=== PATIENT | female | born 1955 | race Hispanic/Latino ===

== ENCOUNTER 2018-03-17 12:59 | Observation (INO) | payer OTHER ==
--- OUTSIDE RECORDS SUMMARY | 2018-03-17 13:02 | XMS REPORT | Clinical Summary ---
:1955 Author Organization [facility] Address [address] [place] [address] Care Team Providers Name Role Phone Asked, No Pcp Primary Care Provider Unavailable Allergies No Known Allergies Medications Medication Sig Dispensed Refills Start End Date Status Date venlafaxine 225 MG 0 Active tablet extended release 7 24hr 24 hr tablet gabapentin (NEURONTIN) 0 Active 300 mg capsule 7 morPHINE (MSIR) 15 MG TK 1 T PO BID 0 Active tablet 7 QUEtiapine (SEROquel) 0 Active 100 MG tablet 7 sertraline (ZOLOFT) 100 0 Active MG tablet 7 hydroxychloroquine Take by mouth 0 Active (PLAQUENIL) 200 mg daily. tablet amitriptyline (ELAVIL) Take 10 mg by 0 Active 10 MG tablet mouth nightly. allopurinol (ZYLOPRIM) Take 300 mg 0 Active 300 MG tablet by mouth daily. simvastatin (ZOCOR) 40 Take 40 mg by 0 Active MG tablet mouth nightly. alendronate (FOSAMAX) TK 1 T PO 0 11/02/19 Discontinued 70 MG tablet ONCE A WEEK 7 18 amitriptyline (ELAVIL) 0 10/09/19 Discontinued 10 MG tablet 7 18 amoxicillin (AMOXIL) TK 1 T PO QID 0 08/31/19 Discontinued 500 MG capsule TAT. TK WF 7 18 AND DRK PLENTY OF WATER atenolol (TENORMIN) 25 0 11/02/19 Discontinued MG tablet 7 18 cyclobenzaprine 0 11/02/19 Discontinued (FLEXERIL) 5 mg tablet 7 18 enalapril (VASOTEC) 5 TK 1 T PO D 1 10/09/19 Discontinued MG tablet 7 18 ferrous sulfate 325 (65 TK 1 T PO BID 2 05/31/19 Discontinued FE) MG tablet 7 18 morPHINE (MS CONTIN) 15 0 04/24/19 Discontinued MG 12 hr tablet 7 18 predniSONE (DELTASONE) Take 5 mg by 0 05/31/19 Discontinued 5 mg tablet mouth daily. 18 gabapentin (NEURONTIN) Take 1 15 capsule 0 04/30/19 300 mg capsule capsule (300 8 18 mg total) by mouth every 8 (eight) hours for 5 days. acetaminophen (TYLENOL Take 2 15 tablet 0 04/30/19 EXTRA STRENGTH) 500 MG tablets 8 18 tablet (1,000 mg total) by mouth every 8 (eight) hours as needed for mild pain for up to 5 days. ibuprofen (ADVIL) 200 Take 2 15 tablet 0 05/25/19 MG tablet tablets (400 8 18 mg total) by mouth every 8 (eight) hours as needed for mild pain for up to 30 days. traMADol (ULTRAM) 50 mg Take 1 tablet 20 tablet 0 10/04/19 tablet (50 mg total) 8 18 by mouth every 6 (six) hours as needed for moderate pain or severe pain for up to 7 days. acetaminophen (TYLENOL Take 1 tablet 21 tablet 0 10/04/19 EXTRA STRENGTH) 500 MG (500 mg 8 18 tablet total) by mouth every 8 (eight) hours for 7 days. cyanocobalamin 1,000 Inject into 0 11/02/19 Discontinued mcg/mL injection the shoulder, 1 18 thigh, or buttocks. Active Problems Problem Noted Date Lung nodule 04/09/2017 Encounters Date Type Specialty Care Team Description 11/06/2017 Telephone CardiothZiggy Riggs MA 11/01/2017 Office Visit Cardiothoracic Amado Caldera Surgery follow-up Surgery MD Aba examination (Primary Dx) 10/12/2017 Telephone CardiothZiggy Riggs MA 10/12/2017 Telephone CardiothZiggy Riggs MA 10/12/2017 Telephone Cardiothoracic Breana, Surgery Rebecca, MA 10/11/2017 Telephone Cardiothoracic Breana, Surgery Rebecca, MA 10/10/2017 Orders Only Cardiothoracic Breana, Lung nodule (Primary Surgery Rebecca, MA Dx) 10/08/2017 Office Visit Cardiothoracic Jamal, Visit for wound Surgery Sheri Pfeiffer NP check (Primary Dx) 09/26/2017 Patient Outreach Garrett Mary Atwood Dolores 09/25/2017 Surgery Cardiothoracic Amado Caldera ROBOTIC ASSISTED Surgery MD Aba THORACOSCOPIC THERAPEUTIC LEFT LUNG WEDGE RESECTION, 09/25/2017 Anesthesia Event Cardiothoracic Jacqueline Snow Surgery 09/25/2017 - Hospital Encounter Cardiovascular Amado Caldera Lung nodule 09/26/2017 MD Aba 09/24/2017 Telephone Cardiothoracic Jamal, Ziggy Pfeiffer, DARIA 08/31/2017 Telephone Cardiothoracic Breana, Surgery Rebecca, MA 08/30/2017 Lab Lab Amado Caldera Lung nodule; MD Aba Pre-op testing; SOB (shortness of breath) 08/30/2017 Hospital Encounter Pulmonology Amado Caldera Lung joseph Troncoso MD 08/30/2017 Hospital Encounter Radiology Amado Caldera MD 08/30/2017 Office Visit Cardiothoracic Amado Caldera Lung nodule (Primary Dx ); Surgery MD Aba Pre-op testing; SOB (shortness of breath) 08/30/2017 Orders Only Cardiothoracic Provider, Ziggy Webb MD 08/22/2017 Orders Only Cardiothoracic Provider, Ziggy Webb MD 05/31/2017 Office Visit Cardiothoracic Amado Caldera Lung nodule (Primary Surgery MD Aba Dx) 05/02/2017 Telephone CardiothAmado Baltazar MD 04/24/2017 Anesthesia Event Cardiothoracic Thony Quintero Surgery MD 04/24/2017 Surgery Cardiothoracic Amado Caldera VIDEO ASSISTED Surgery MD Aba THOROSCOPIC RIGHT LOWER LOBE W/ WEDGE RESECTION 04/24/2017 - Hospital Encounter Cardiovascular WernerAmado Lung nodule 04/25/2017 MD Aba 04/23/2017 Telephone Cardiothoracic Jamal Surgery Sheri Pfeiffer, [employer]ACH[employer] RIGGER 04/05/2017 Office Visit Cardiothoracic Amado Caldera Lung nodule (Primary Surgery MD Aba Dx) 04/03/2017 Telephone Cardiothoracic Amado Caldera Surgery MD Aba 03/28/2017 Anesthesia Event Cardiothoracic Mike, Surgery MD Robert 03/28/2017 Surgery Cardiothoracic Amado Caldera FLEXIBLE Surgery MD Aba BRONCHOSCOPY, ENDOBRONCHIAL ULTRASOUND W/ BIOPSY 03/28/2017 Hospital Encounter Cardiothoracic Amado Caldera Surgery MD Aba 03/27/2017 Telephone Cardiothoracic Jamal, Surgery Sheri Pfeiffer NP 03/19/2017 Hospital Encounter Pulmonology Amado Caldera SOB (shortness of Y.MD Bhanu breath) 03/19/2017 Lab Lab Amado Caldera LAD (lymphadenopathy), mediastinal; MD Aba Lung nodules; Pre-op testing 03/19/2017 Hospital Encounter Pulmonology Amado Caldera MD after 03/16/2017 Immunizations Name Dates Previously Given Next Due FLUCELVAX QUAD PF (0.5mL syringe) 04/25/2017 Social History Tobacco Use Types Packs/Day Years Used Date Never Smoker Smokeless Tobacco: Never Used Alcohol Use Drinks/Week oz/Week Comments No Sex Assigned at Date Recorded Not on file Job Start Date Occupation Industry Not on file Not on file Not on file Travel History Travel Start Travel End No recent travel history available. Last Filed Vital Signs Vital Sign Reading Time Taken Blood Pressure 147/81 11/01/2017 10:35 AM CDT Pulse 96 11/01/2017 10:35 AM CDT Temperature 36.5 C (97.7 F) 11/01/2017 10:35 AM CDT Respiratory Rate 16 11/01/2017 10:35 AM CDT Oxygen Saturation 96% 11/01/2017 10:35 AM CDT Inhaled Oxygen Concentration - - Weight 93 kg (205 lb) 11/01/2017 10:35 AM CDT Height 167.6 cm (5' 6") 11/01/2017 10:35 AM CDT Body Mass Index 33.09 11/01/2017 10:35 AM CDT Plan of Treatment Health Maintenance Due Date Last Done Comments CERVICAL CANCER SCREENING 1974 BREAST CANCER SCREENING 07/20/2003 COLON CANCER SCREENING 07/20/2003 SHINGRIX VACCINE (1 of 2) 07/20/2003 ZOSTER VACCINE 2013 INFLUENZA VACCINE 11/14/2017 04/25/2017 Procedures Procedure Name Priority Date/Time Associated Comments Diagnosis XR CHEST 1 VW STAT 09/26/2017 2:09 Results for this PORTABLE PM CDT procedure are in the results section. POC GLUCOSE Routine 09/26/2017 11:44 Results for this AM CDT procedure are in the results section. ZZESTIMATED GFR Routine 09/26/2017 8:30 Results for this AM CDT procedure are in the results section. PHOSPHORUS LEVEL Routine 09/26/2017 8:30 Results for this AM CDT procedure are in the results section. MAGNESIUM LEVEL Routine 09/26/2017 8:30 Results for this AM CDT procedure are in the results section. BASIC METABOLIC PANEL Routine 09/26/2017 8:30 Results for this AM CDT procedure are in the results section. HC COMPLETE BLD COUNT Routine 09/26/2017 8:11 Results for this W/AUTO DIFF AM CDT procedure are in the results section. POC GLUCOSE Routine 09/26/2017 7:52 Results for this AM CDT procedure are in the results section. XR CHEST 1 VW STAT 09/26/2017 6:30 Results for this PORTABLE AM CDT procedure are in the results section. ZZESTIMATED GFR Routine 09/26/2017 5:10 Results for this AM CDT procedure are in the results section. CBC WITH PLATELET AND Routine 09/26/2017 5:10 Results for this DIFFERENTIAL AM CDT procedure are in the results section. BASIC METABOLIC PANEL Routine 09/26/2017 5:10 Results for this AM CDT procedure are in the results section. POC GLUCOSE Routine 09/25/2017 8:50 Results for this PM CDT procedure are in the results section. POC GLUCOSE Routine 09/25/2017 5:09 Results for this PM CDT procedure are in the results section. SURGICAL PATHOLOGY Routine 09/25/2017 4:04 Results for this REQUEST PM CDT procedure are in the results section. XR CHEST 1 VW STAT 09/25/2017 11:15 Results for this PORTABLE AM CDT procedure are in the results section. FLOW CYTOMETRY Timed 09/25/2017 9:50 Lung nodule Results for this EVALUATION AM CDT procedure are in the results section. FUNGUS SMEAR Timed 09/25/2017 9:50 Results for this AM CDT procedure are in the results section. FUNGUS CULTURE Timed 09/25/2017 9:50 Results for this AM CDT procedure are in the results section. ANAEROBIC CULTURE Timed 09/25/2017 9:50 Results for this AM CDT procedure are in the results section. GRAM STAIN Timed 09/25/2017 9:50 Results for this AM CDT procedure are in the results section. AFB STAIN Timed 09/25/2017 9:50 Results for this AM CDT procedure are in the results section. AFB CULTURE Timed 09/25/2017 9:50 Lung nodule Results for this AM CDT procedure are in the results section. TISSUE CULTURE Timed 09/25/2017 9:50 Lung nodule Results for this AM CDT procedure are in the results section. ARTERIAL BLOOD GAS, STAT 09/25/2017 9:31 Results for this CORRECTED AM CDT procedure are in the results section. POTASSIUM, SYRINGE STAT 09/25/2017 9:31 Results for this AM CDT procedure are in the results section. SODIUM LEVEL, SYRINGE STAT 09/25/2017 9:31 Results for this AM CDT procedure are in the results section. IONIZED CALCIUM, STAT 09/25/2017 9:31 Results for this ARTERIAL AM CDT procedure are in the results section. HEMOGLOBIN, SYRINGE STAT 09/25/2017 9:31 Results for this AM CDT procedure are in the results section. GLUCOSE LEVEL, STAT 09/25/2017 9:31 Results for this SYRINGE AM CDT procedure are in the results section. ARTERIAL LINE Routine 09/25/2017 8:56 AM CDT Procedure Note - Fredrick Viramontes CRNA - 09/25/2017 8:56 AM CDT Arterial line Performed by: FREDRICK VIRAMONTES Authorized by: REMY BRYANT JR. Patient Location: Pre-op Start Time: 09/25/2017 7:00 AM End Time: 09/25/2017 7:05 AM Staff: Resident/MAGDALENA/AA: FREDRICK VIRAMONTES Performed by: Resident/OTORHINOLARYNGOLOGIST/AA Pre-procedure: patient identified, IV checked, site and side verified, risks and benefits discussed, procedure verified, surgical consent complete, patient position confirmed, monitors and equipment checked and pre-op evaluation complete MSBT: antiseptic used, all elements of maximal sterile barrier technique followed, hand hygiene performed, cap/gown used by other personnel and solutions labeled TIme Out Performed: 09/25/2017 7:00 AM Indications: Indications: multiple ABGs, respiratory failure and hemodynamic monitoring Anesthesia: Anesthesia: Local infiltration Procedure Details: Arterial Line placement: Placed pre-induction Line placement site: Radial Line placement side: Left Arterial line gauge: 20 G Number of attempts: 1 Ultrasound guidance used: No Post-procedure: Post-procedure: Sterile dressing applied Post procedure circulation, sensation, movement: Unchanged Patient tolerance: Patient tolerated the procedure well with no immediate complications DE AN ELECTIVE ENDOTRACHEAL AIRWAY Routine 09/25/2017 8:54 AM CDT Procedure Note - Fredrick Viramontes CRNA - 09/25/2017 8:54 AM CDT Airway Date/Time: 09/25/2017 8:12 AM Performed by: FREDRICK VIRAMONTES Authorized by: REMY BRYANT JR. Location: OR Urgency: Elective Anesthesiologist: REMY BRYANT JR. Resident/OTORHINOLARYNGOLOGIST/AA: FREDRICK VIRAMONTES Performed by: resident/OTORHINOLARYNGOLOGIST/AA Preoxygenated with 100% O2: Yes C-spine Precautions Maintained Throughout: Yes Mask Ventilation: Easy mask Final Airway Type: Endotracheal airway Final Endotracheal Airway: ETT - double lumen left Cuffed: Yes Technique Used: Direct laryngoscopy Devices/Methods Used in Placement: Intubating stylet Insertion Site: Oral Blade Type: Raul Laryngoscope Blade/Videolaryngoscope Blade Size: 3 ETT Double Lumen (fr): 37 Cuff at minimum occlusion pressure: Yes Measured from: Lips ETT to Lips (cm): 28 Placement Verified by: CO2 detection, direct visualization and equal breath sounds Laryngoscopic view: Grade I - full view of glottis Rapid Sequence Induction (RSI): No Modified RSI: No Number of Attempts at Approach: 1 Atraumatic intubation, teeth and lips intact, ETT secured via tape and connected to the OR vent. Patient tolerated intubation well. ARTERIAL BLOOD GAS, STAT 09/25/2017 8:54 AM Results for this CORRECTED CDT procedure are in the results section. POTASSIUM, SYRINGE STAT 09/25/2017 8:54 AM Results for this CDT procedure are in the results section. SODIUM LEVEL, SYRINGE STAT 09/25/2017 8:54 AM Results for this CDT procedure are in the results section. HEMOGLOBIN, SYRINGE STAT 09/25/2017 8:54 AM Results for this CDT procedure are in the results section. IONIZED CALCIUM, STAT 09/25/2017 8:54 AM Results for this ARTERIAL CDT procedure are in the results section. GLUCOSE LEVEL, SYRINGE STAT 09/25/2017 8:54 AM Results for this CDT procedure are in the results section. SODIUM LEVEL, SYRINGE STAT 09/25/2017 7:30 AM Results for this CDT procedure are in the results section. HEMOGLOBIN, SYRINGE STAT 09/25/2017 7:30 AM Results for this CDT procedure are in the results section. POTASSIUM, SYRINGE STAT 09/25/2017 7:30 AM Results for this CDT procedure are in the results section. GLUCOSE LEVEL, SYRINGE STAT 09/25/2017 7:30 AM Results for this CDT procedure are in the results section. PREPARE RBC STAT 09/25/2017 7:17 AM Results for this CDT procedure are in the results section. TYPE AND SCREEN STAT 09/25/2017 7:17 AM Results for this CDT procedure are in the results section. ECG 12-LEAD STAT 09/25/2017 5:48 AM Results for this CDT procedure are in the results section. SPIROMETRY PRE AND POST Routine 08/30/2017 4:51 PM Lung nodule Results for this WITH BRONCHILATOR, CDT Pre-op testing procedure are in DIFFUSION, LUNG VOLUMES SOB (shortness the results of breath) section. ZZESTIMATED GFR Routine 08/30/2017 2:15 PM Results for this CDT procedure are in the results section. PARTIAL THROMBOPLASTIN Routine 08/30/2017 2:15 PM Lung nodule Results for this TIME (PTT) CDT Pre-op testing procedure are in SOB (shortness the results of breath) section. PROTHROMBIN TIME WITH Routine 08/30/2017 2:15 PM Lung nodule Results for this INR CDT Pre-op testing procedure are in SOB (shortness the results of breath) section. COMPREHENSIVE METABOLIC Routine 08/30/2017 2:15 PM Lung nodule Results for this PANEL CDT Pre-op testing procedure are in SOB (shortness the results of breath) section. TYPE AND SCREEN Routine 08/30/2017 2:15 PM Lung nodule Results for this CDT Pre-op testing procedure are in SOB (shortness the results of breath) section. HC COMPLETE BLD COUNT Routine 08/30/2017 2:15 PM Lung nodule Results for this W/AUTO DIFF CDT Pre-op testing procedure are in SOB (shortness the results of breath) section. CT CHEST EXTERNAL STUDY Routine 08/21/2017 8:11 AM Results for this CDT procedure are in the results section. CT CHEST W CONTRAST Routine 08/21/2017 XR CHEST 1 VW PORTABLE STAT 04/25/2017 12:13 PM Results for this GENER[employer] REBUILDER procedure are in the results section. POC GLUCOSE Routine 04/25/2017 11:48 AM Results for this GENER[employer] REBUILDER procedure are in the results section. POC GLUCOSE Routine 04/25/2017 7:46 AM Results for this GENER[employer] REBUILDER procedure are in the results section. XR CHEST 1 VW PORTABLE Routine 04/25/2017 7:05 AM Results for this GENER[employer] REBUILDER procedure are in the results section. ZZESTIMATED GFR Routine 04/25/2017 4:42 AM Results for this GENER[employer] REBUILDER procedure are in the results section. PHOSPHORUS LEVEL Routine 04/25/2017 4:42 AM Results for this GENER[employer] REBUILDER procedure are in the results section. MAGNESIUM LEVEL Routine 04/25/2017 4:42 AM Results for this [employer] REBUILDER procedure are in the results section. HC COMPLETE BLD COUNT Routine 04/25/2017 4:42 AM Results for this W/AUTO DIFF [employer]BUILDER procedure are in the results section. BASIC METABOLIC PANEL Routine 04/25/2017 4:42 AM Results for this GENER[employer] REBUILDER procedure are in the results section. POC GLUCOSE Routine 04/24/2017 6:37 PM Results for this GENER[employer] REBUILDER procedure are in the results section. XR CHEST 1 VW STAT 04/24/2017 5:52 PM Results for this GENER[employer] REBUILDER procedure are in the results section. FUNGUS SMEAR Routine 04/24/2017 5:30 PM Results for this GENER[employer] REBUILDER procedure are in the results section. GRAM STAIN Routine 04/24/2017 5:30 PM Results for this GENER[employer] REBUILDER procedure are in the results section. AFB STAIN Routine 04/24/2017 5:30 PM Results for this GENER[employer] REBUILDER procedure are in the results section. AFB CULTURE Routine 04/24/2017 5:30 PM Results for this GENER[employer] REBUILDER procedure are in the results section. AEROBIC CULTURE Routine 04/24/2017 5:30 PM Results for this GENER[employer] REBUILDER procedure are in the results section. FUNGUS CULTURE Routine 04/24/2017 5:30 PM Results for this GENER[employer] REBUILDER procedure are in the results section. ANAEROBIC CULTURE Routine 04/24/2017 5:30 PM Results for this GENER[employer] REBUILDER procedure are in the results section. SURGICAL PATHOLOGY Routine 04/24/2017 4:52 PM Results for this REQUEST [employer] REBUIL[employer] procedure are in the results section. ARTERIAL LINE Routine 04/24/2017 4:29 PM GENERATOR REBUILDER Procedure Note - Paulina Preston MD - 04/24/2017 3:53 PM GENERATOR REBUILDER Arterial line Performed by: PAULINA PRESTON Authorized by: PAULINA PRESTON Patient Location: OR Start Time: 04/24/2017 3:30 PM End Time: 04/24/2017 3:33 PM Staff: Anesthesiologist: PAULINA PRESTON Performed by: Anesthesiologist Pre-procedure: patient identified, IV checked, site and side verified, risks and benefits discussed, procedure verified, surgical consent complete, patient position confirmed, monitors and equipment checked and pre-op evaluation complete MSBT: antiseptic used, all elements of maximal sterile barrier technique followed, hand hygiene performed, cap/gown used by other personnel and solutions labeled TIme Out Performed: 04/24/2017 3:29 PM Indications: Indications: multiple ABGs and hemodynamic monitoring Anesthesia: Anesthesia: General Procedure Details: Arterial Line placement: Placed post induction Line placement site: Radial Line placement side: Left Arterial line gauge: 20 G Number of attempts: 1 Ultrasound guidance used: No Post-procedure: Post-procedure: Sterile dressing applied Post procedure circulation, sensation, movement: Normal and unchanged Patient tolerance: Patient tolerated the procedure well with no immediate complications DE AN ELECTIVE ENDOTRACHEAL AIRWAY Routine 04/24/2017 4:29 PM GENERATOR REBUILDER Procedure Note - Paulina Perston MD - 04/24/2017 3:50 PM GENERATOR REBUILDER Airway Date/Time: 04/24/2017 3:31 AM Performed by: PAULINA PRESTON Authorized by: PAULINA PRESTON Location: OR Urgency: Elective Difficult Airway: No Anesthesiologist: PAULINA PRESTON Resident/OTORHINOLARYNGOLOGIST/AA: BUZZ FLORES Performed by: resident/OTORHINOLARYNGOLOGIST/AA Preoxygenated with 100% O2: Yes C-spine Precautions Maintained Throughout: Yes Mask Ventilation: Easy mask Final Airway Type: Endotracheal airway Final Endotracheal Airway: ETT and ETT - double lumen left Technique Used: Video laryngoscopy Devices/Methods Used in Placement: Intubating stylet Insertion Site: Oral Laryngoscope Blade/Videolaryngoscope Blade Size: 3 ETT Double Lumen (fr): 37 Measured from: Teeth ETT to Teeth (cm): 29 Placement Verified by: CO2 detection, direct visualization, equal breath sounds and fiber optic visualization Laryngoscopic view: Grade I - full view of glottis Rapid Sequence Induction (RSI): No Modified RSI: No Number of Attempts at Approach: 1 Placed double lumen tube with glidescope and repositioned with fiberoptic. After pt placed in right lateral decubitus reconfirmed placement with fiberoptic. IONIZED CALCIUM, STAT 04/24/2017 4:28 PM Results for this ARTERIAL [employer]BUIL[employer] procedure are in the results section. HEMOGLOBIN, SYRINGE STAT 04/24/2017 4:28 PM Results for this GENER[employer] REBUILDER procedure are in the results section. GLUCOSE LEVEL, SYRINGE STAT 04/24/2017 4:28 PM Results for this GENER[employer] REBUILDER procedure are in the results section. POTASSIUM, SYRINGE STAT 04/24/2017 4:28 PM Results for this GENERATOR REBUILDER procedure are in the results section. SODIUM LEVEL, SYRINGE STAT 04/24/2017 4:28 PM Results for this GENERATOR REBUILDER procedure are in the results section. ARTERIAL BLOOD GAS, STAT 04/24/2017 4:28 PM Results for this CORRECTED [employer] REBUILDER procedure are in the results section. GLUCOSE LEVEL, SYRINGE STAT 04/24/2017 3:40 PM Results for this GENER[employer] REBUILDER procedure are in the results section. IONIZED CALCIUM, STAT 04/24/2017 3:40 PM Results for this ARTERIAL GENER[employer] REBUILDER procedure are in the results section. HEMOGLOBIN, SYRINGE STAT 04/24/2017 3:40 PM Results for this GENER[employer] REBUILDER procedure are in the results section. SODIUM LEVEL, SYRINGE STAT 04/24/2017 3:40 PM Results for this GENERATOR REBUILDER procedure are in the results section. ARTERIAL BLOOD GAS, STAT 04/24/2017 3:40 PM Results for this CORRECTED GENER[employer] REBUILDER procedure are in the results section. POTASSIUM, SYRINGE STAT 04/24/2017 3:40 PM Results for this GENER[employer] REBUILDER procedure are in the results section. PROTHROMBIN TIME WITH STAT 04/24/2017 11:35 AM Results for this INR [employer] REBUIL[employer] procedure are in the results section. PARTIAL THROMBOPLASTIN STAT 04/24/2017 11:35 AM Results for this TIME (PTT) [employer] REBUIL[employer] procedure are in the results section. TYPE AND SCREEN STAT 04/24/2017 11:06 AM Results for this [employer] REBUIL[employer] procedure are in the results section. ANESTHESIA INTUBATION Routine 03/29/2017 8:46 AM Results for this [employer] procedure are in the results section. CYTOLOGY Routine 03/28/2017 1:04 PM Results for this (NON-GYNECOLOGICAL) [employer]BUIL[employer] procedure are in REQUEST the results section. CYTOLOGY Routine 03/28/2017 1:01 PM Results for this (NON-GYNECOLOGICAL) GENERATOR REBUILDER procedure are in REQUEST the results section. FLOW CYTOMETRY Routine 03/28/2017 8:56 AM Results for this EVALUATION [employer] REBUILDER procedure are in the results section. ECG 12-LEAD STAT 03/28/2017 6:46 AM Results for this GENER[employer] REBUILDER procedure are in the results section. ZZESTIMATED GFR Routine 03/19/2017 8:54 AM Results for this [employer] REBUILDER procedure are in the results section. TYPE AND SCREEN Routine 03/19/2017 8:54 AM LAD Results for this GENERATOR REBUILDER (lymphadenopathy procedure are in ), mediastinal the results Lung nodules section. Pre-op testing HC COMPLETE BLD COUNT Routine 03/19/2017 8:54 AM LAD Results for this W/AUTO DIFF GENERATOR REBUILDER (lymphadenopathy procedure are in ), mediastinal the results Lung nodules section. Pre-op testing COMPREHENSIVE METABOLIC Routine 03/19/2017 8:54 AM LAD Results for this PANEL [employer] REBUILDER (lymphadenopathy procedure are in ), mediastinal the results Lung nodules section. Pre-op testing after 03/16/2017 Results XR Chest 1 Vw Portable (09/26/2017 2:09 PM CDT)Only the most recent of5 resultswithin the time period is included. Narrative Performed At EXAMINATION:XR CHEST 1 VW PORTABLE [facility] CLINICAL HISTORY:CT removal COMPARISON:09/26/2017 0631 hours IMPRESSION: Interval removal left-sided chest tube. No pneumothorax. No infiltrate congestion or effusion. Moderate cardiomegaly unchanged. Visualized skeleton intact [id number] Procedure Note Interface, Radiology Results Incoming - 09/26/2017 2:14 PM CDT EXAMINATION: XR CHEST 1 VW PORTABLE CLINICAL HISTORY: CT removal COMPARISON: 09/26/2017 0631 hours IMPRESSION: Interval removal left-sided chest tube. No pneumothorax. No infiltrate congestion or effusion. Moderate cardiomegaly unchanged. Visualized skeleton intact [id number] Performing Organization Address City/State/Zipcode Phone Number [facility] [address] [place] [address] POC glucose (09/26/2017 11:44 AM CDT)Only the most recent of7 resultswithin the time period is included. POC glucose 123 (H) 65 - 99 mg/dL [facility] DEPARTMENT OF PATHOLOGY AND Comment: GENOMIC MEDICINE No Action Needed [facility] Notified RN Meter ID: [id number] [employer] Matcher: Reji Cary Performing Organization Address [facility] [place] Phone [place] [facility] DEPARTMENT OF PATHOLOGY AND [address] [place] [address] Estimated GFR (09/26/2017 8:30 AM CDT)Only the most recent of5 resultswithin the time period is included. GFR Non Af Amer 41 (A) mL/min/1.73 m2 [facility] DEPARTMENT OF PATHOLOGY AND GENOMIC MEDICINE GFR Af Amer 50 (A) mL/min/1.73 m2 [facility] DEPARTMENT OF Comment: PATHOLOGY AND GENOMIC Chronic kidney disease: <60 mL/min/1.73m2 MEDICINE Kidney failure: <15 mL/min/1.73m2 The estimated GFR is calculated from the IDMS-traceable Modification of Diet in Renal Disease Equation. The accuracy of the calculation is poor when the creatinine is normal. Calculated values >90 mL/min/1.73m2 are not reported. This equation has not been validated in children (<18 years), women, the elderly (>70 years), or ethnic groups other than Caucasians and Americans. Specimen Plasma specimen Performing Organization Address [facility] [place] Phone Number [facility] DEPARTMENT OF PATHOLOGY AND [address] [place] [address] Phosphorus level (09/26/2017 8:30 AM CDT)Only the most recent of2 resultswithin the time period is included. Phosphorus 2.7 2.4 - 4.5 mg/dL [facility] DEPARTMENT OF PATHOLOGY AND GENOMIC MEDICINE Specimen Plasma specimen Performing Organization Address [facility] Phone Number [facility] DEPARTMENT OF PATHOLOGY AND [address] [place] [address] Magnesium level (09/26/2017 8:30 AM CDT)Only the most recent of2 resultswithin the time period is included. Magnesium 2.5 (H) 1.6 - 2.4 mg/dL [facility] DEPARTMENT OF PATHOLOGY AND GENOMIC MEDICINE Specimen Plasma specimen Performing Organization Address [facility] Phone Number [facility] DEPARTMENT OF PATHOLOGY AND [address] [place] [address] [employer] [facility] Basic metabolic panel (09/26/2017 8:30 AM CDT)Only the most recent of3 resultswithin the time period is included. Sodium 143 135 - 148 mEq/L [facility] DEPARTMENT OF PATHOLOGY AND GENOMIC MEDICINE Potassium 5.3 (H) 3.5 - 5.0 mEq/L [facility] DEPARTMENT OF PATHOLOGY AND GENOMIC MEDICINE Chloride 107 98 - 112 mEq/L [facility] DEPARTMENT OF PATHOLOGY AND GENOMIC MEDICINE CO2 24 24 - 31 mEq/L [facility] DEPARTMENT OF PATHOLOGY AND GENOMIC MEDICINE Anion gap 12@ANIO 7 - 15 mEq/L [facility] DEPARTMENT OF PATHOLOGY AND GENOMIC MEDICINE BUN 22 8 - 23 mg/dL [facility] DEPARTMENT OF PATHOLOGY AND GENOMIC MEDICINE Creatinine 1.3 (H) 0.5 - 0.9 mg/dL [facility] DEPARTMENT OF PATHOLOGY AND GENOMIC MEDICINE Glucose 119 (H) 65 - 99 mg/dL [facility] DEPARTMENT OF PATHOLOGY AND GENOMIC MEDICINE Calcium 8.9 8.8 - 10.2 mg/dL [facility] DEPARTMENT OF PATHOLOGY AND GENOMIC MEDICINE Specimen Plasma specimen Performing Organization Address City/State/Zipcode Phone Number [facility] DEPARTMENT OF PATHOLOGY AND [address] [place] [address] [employer] [facility] CBC with platelet and differential (09/26/2017 8:11 AM CDT)Only the most recent of5 resultswithin the time period is included. WBC 10.85 4.50 - 11.00 k/uL [facility] DEPARTMENT OF PATHOLOGY AND GENOMIC MEDICINE RBC 3.16 (L) 4.20 - 5.50 m/uL [facility] DEPARTMENT OF PATHOLOGY AND GENOMIC MEDICINE HGB 9.5 (L) 12.0 - 16.0 g/dL [facility] DEPARTMENT OF PATHOLOGY AND GENOMIC MEDICINE HCT 30.1 (L) 37.0 - 47.0 % [facility] DEPARTMENT OF PATHOLOGY AND GENOMIC MEDICINE MCV 95.3 82.0 - 100.0 fL [facility] DEPARTMENT OF PATHOLOGY AND GENOMIC MEDICINE MCH 30.1 27.0 - 34.0 pg [facility] DEPARTMENT OF PATHOLOGY AND GENOMIC MEDICINE MCHC 31.6 31.0 - 37.0 g/dL [facility] DEPARTMENT OF PATHOLOGY AND GENOMIC MEDICINE RDW - SD 50.7 37.0 - 55.0 fL [facility] DEPARTMENT OF PATHOLOGY AND GENOMIC MEDICINE MPV 10.9 8.8 - 13.2 fL [facility] DEPARTMENT OF PATHOLOGY AND GENOMIC MEDICINE Platelet count 401 (H) 150 - 400 k/uL [facility] DEPARTMENT OF PATHOLOGY AND GENOMIC MEDICINE Nucleated RBC 0.00 /100 WBC [facility] DEPARTMENT OF PATHOLOGY AND GENOMIC MEDICINE Neutrophils 81.2 (H) 39.0 - 69.0 % [facility] DEPARTMENT OF PATHOLOGY AND GENOMIC MEDICINE Lymphocytes 10.5 (L) 25.0 - 45.0 % [facility] DEPARTMENT OF PATHOLOGY AND GENOMIC MEDICINE Monocytes 7.9 0.0 - 10.0 % [facility] DEPARTMENT OF PATHOLOGY AND GENOMIC MEDICINE Eosinophils 0.0 0.0 - 5.0 % [facility] DEPARTMENT OF PATHOLOGY AND GENOMIC MEDICINE Basophils 0.1 0.0 - 1.0 % [facility] DEPARTMENT OF PATHOLOGY AND GENOMIC MEDICINE Immature granulocytes 0.3Comment: 0.0 - 1.0 % [facility] DEPARTMENT OF "Immature PATHOLOGY AND GENOMIC granulocytes" MEDICINE (promyelocytes, myelocytes, metamyelocytes) Performing Organization Address City/State/[facility] Phone Number [facility] DEPARTMENT OF PATHOLOGY AND [address] [place] [address] GENOMIC [facility] Surgical pathology request (09/25/2017 4:04 PM CDT)Only the most recent of2 resultswithin the time period is included. [facility] DEPARTMENT OF PATHOLOGY AND GENOMIC MEDICINE Surgical pathology report See link below for PDF [facility] DEPARTMENT OF Lab Report PATHOLOGY AND GENOMIC MEDICINE Result status This is Final Report to [facility] DEPARTMENT OF [id number] PATHOLOGY AND GENOMIC MEDICINE Performing Organization Address City/[facility] Phone Number [facility] DEPARTMENT OF PATHOLOGY AND [address] [place] [address] Fungus smear (09/25/2017 9:50 AM CDT)Only the most recent of2 resultswithin the time period is included. Fungus smear No fungi observed. [facility] DEPARTMENT OF PATHOLOGY Comment: AND GENOMIC MEDICINE Specimen Information Specimen Source: Tissue Specimen Site: Left lower lung wedge resection site 1 Specimen Tissue Performing Organization Address City/State/Zipcode Phone Number [facility] DEPARTMENT OF PATHOLOGY AND [address] [place] [address] GENOMIC MEDICINE Flow cytometry evaluation (09/25/2017 9:50 AM CDT)Only the most recent of2 resultswithin the time period is included. [facility] DEPARTMENT OF PATHOLOGY AND GENOMIC MEDICINE Flow cytometry evaluation See link below for PDF [facility] DEPARTMENT OF Lab Report PATHOLOGY AND GENOMIC MEDICINE Specimen Tissue - Other- Detailed Description Required Performing Organization Address City/State/Zipcode Phone Number [facility] DEPARTMENT OF PATHOLOGY AND [address] [place] [address] GENOMIC MEDICINE AFB culture (09/25/2017 9:50 AM CDT)Only the most recent of2 resultswithin the time period is included. AFB culture isolate No growth after 6 weeks of incubation. [facility] DEPARTMENT OF PATHOLOGY Comment: AND GENOMIC MEDICINE Specimen Information Specimen Source: Tissue Specimen Site: Left lower lung wedge resection site 1 Specimen Tissue - Other- Detailed Description Required Performing Organization Address City/State/Zipcode Phone Number [facility] DEPARTMENT OF PATHOLOGY AND [address] [place] [address] GENOMIC MEDICINE Tissue culture (09/25/2017 9:50 AM CDT) Tissue culture isolate No growth after 3 days. [facility] DEPARTMENT OF Comment: PATHOLOGY AND GENOMIC Specimen Information MEDICINE Specimen Source: Tissue Specimen Site: Left lower lung wedge resection site 1 Specimen Tissue - Other- Detailed Description Required Performing Organization Address City/[facility] Phone Number [facility] DEPARTMENT OF PATHOLOGY AND [address] [place] [address] GENOMIC MEDICINE Gram stain (09/25/2017 9:50 AM CDT)Only the most recent of2 resultswithin the time period is included. Gram stain isolate Occasional WBC's [facility] DEPARTMENT OF PATHOLOGY No organisms seen AND GENOMIC MEDICINE Comment: Specimen Information Specimen Source: Tissue Specimen Site: Left lower lung wedge resection site 1 Specimen Tissue Performing Organization Address City/[facility] Phone Number [facility] DEPARTMENT OF PATHOLOGY AND [address] [place] [address] GENOMIC MEDICINE AFB stain (09/25/2017 9:50 AM CDT)Only the most recent of2 resultswithin the time period is included. AFB stain No acid fast bacilli (AFB) seen. [facility] DEPARTMENT OF PATHOLOGY AND Comment: GENOMIC MEDICINE Specimen Information Specimen Source: Tissue Specimen Site: Left lower lung wedge resection site 1 Specimen Tissue Performing Organization Address City/[facility]/Zipcode Phone Number [facility] DEPARTMENT OF PATHOLOGY AND [address] [place] [address] GENOMIC MEDICINE Fungus culture (09/25/2017 9:50 AM CDT)Only the most recent of2 resultswithin the time period is included. Fungus culture isolate No growth after 4 weeks of incubation. [facility] DEPARTMENT OF Comment: PATHOLOGY AND GENOMIC Specimen Information MEDICINE Specimen Source: Tissue Specimen Site: Left lower lung wedge resection site 1 Specimen Tissue Performing Organization Address City/[facility] Phone Number [facility] DEPARTMENT OF PATHOLOGY AND [address] [place] [address] GENOMIC MEDICINE Anaerobic culture (09/25/2017 9:50 AM CDT)Only the most recent of2 resultswithin the time period is included. Anaerobic culture No anaerobic organisms isolated. [facility] DEPARTMENT OF isolate Comment: PATHOLOGY AND GENOMIC Specimen Information MEDICINE Specimen Source: Tissue Specimen Site: Left lower lung wedge resection site 1 Specimen Tissue Performing Organization Address City/[facility] Phone Number [facility] DEPARTMENT OF PATHOLOGY AND [address] [place] [address] GENOMIC [facility] Sodium level, syringe (09/25/2017 9:31 AM CDT)Only the most recent of5 resultswithin the time period is included. Sodium, syringe 138 135 - 148 mEq/L [facility] DEPARTMENT OF PATHOLOGY AND GENOMIC MEDICINE Specimen Blood Performing Organization Address [facility] [place] Phone Number [facility] DEPARTMENT OF PATHOLOGY AND [address] [place] [address] GENOMIC MEDICINE Potassium, syringe (09/25/2017 9:31 AM CDT)Only the most recent of5 resultswithin the time period is included. Potassium, syringe 4.1 3.5 - 5.0 mEq/L [facility] DEPARTMENT OF PATHOLOGY AND GENOMIC MEDICINE Specimen Blood Performing Organization Address [facility] [place] Phone Number [facility] DEPARTMENT OF PATHOLOGY AND [address] [place] [address] GENOMIC [facility] Ionized calcium, arterial (09/25/2017 9:31 AM CDT)Only the most recent of4 resultswithin the time period is included. Ionized calcium, arterial 1.05 (L) 1.11 - 1.32 mmol/L [facility] DEPARTMENT OF PATHOLOGY AND GENOMIC MEDICINE Specimen Blood Performing Organization Address [facility] Phone Number [facility] DEPARTMENT OF PATHOLOGY AND [address] [place] [address] GENOMIC MEDICINE Hemoglobin, syringe (09/25/2017 9:31 AM CDT)Only the most recent of5 resultswithin the time period is included. Hemoglobin, syringe 9.1 (L) 12.0 - 16.0 g/dL [facility] DEPARTMENT OF PATHOLOGY AND GENOMIC MEDICINE Specimen Blood Performing Organization Address City/[facility] Phone Number [facility] DEPARTMENT OF PATHOLOGY AND [address] [place] [phone] [place] [address] Glucose level, syringe (09/25/2017 9:31 AM CDT)Only the most recent of5 resultswithin the time period is included. Glucose, syringe 120 (H) 65 - 99 mg/dL [facility] DEPARTMENT OF PATHOLOGY AND GENOMIC MEDICINE Specimen Blood Performing Organization Address City/[facility] Phone Number [facility] DEPARTMENT OF PATHOLOGY AND [address] [place] [address] Arterial blood gas, corrected (09/25/2017 9:31 AM CDT)Only the most recent of4 resultswithin the time period is included. pH, arterial 7.38 7.35 - 7.45 [facility] DEPARTMENT OF PATHOLOGY AND GENOMIC MEDICINE pCO2, arterial 43 35 - 45 mmHg [facility] DEPARTMENT OF PATHOLOGY AND GENOMIC MEDICINE pO2, arterial 217 (H) 80 - 90 mmHg [facility] DEPARTMENT OF PATHOLOGY AND GENOMIC MEDICINE Temperature, Celsius 37.0 Degrees C [facility] DEPARTMENT OF PATHOLOGY AND GENOMIC MEDICINE O2 saturation, arterial 99 95 - 100 % [facility] DEPARTMENT OF PATHOLOGY AND GENOMIC MEDICINE pH, arterial corrected 7.38 [facility] DEPARTMENT OF PATHOLOGY AND GENOMIC MEDICINE pCO2, arterial corrected 43 mmHg [facility] DEPARTMENT OF PATHOLOGY AND GENOMIC MEDICINE pO2, arterial corrected 217 mmHg [facility] DEPARTMENT OF PATHOLOGY AND GENOMIC MEDICINE Base excess, arterial 0 -2 - 2 mEq/L [facility] DEPARTMENT OF PATHOLOGY AND GENOMIC MEDICINE Specimen Blood Performing Organization Address [facility] Phone Number [facility] DEPARTMENT OF PATHOLOGY AND [address] [place] [address] MEDICINE Prepare RBC (09/25/2017 7:17 AM CDT) Product name Apheresis Red Cell AS3 #2 LR [facility] DEPARTMENT OF PATHOLOGY AND GENOMIC MEDICINE Unit number [id number] [facility] DEPARTMENT OF PATHOLOGY AND GENOMIC MEDICINE Product code [id number] [facility] DEPARTMENT OF PATHOLOGY AND GENOMIC MEDICINE Dispense status Returned to not [facility] DEPARTMENT OF transfused PATHOLOGY AND GENOMIC MEDICINE Blood expiration date [id number] [facility] DEPARTMENT OF PATHOLOGY AND GENOMIC MEDICINE Blood type code 5100 [facility] DEPARTMENT OF PATHOLOGY AND GENOMIC MEDICINE Blood type O POSITIVE [facility] DEPARTMENT OF PATHOLOGY AND GENOMIC MEDICINE Product name Red Blood Cells -1, [facility] DEPARTMENT OF Leukored PATHOLOGY AND GENOMIC MEDICINE Unit number [id number] [facility] DEPARTMENT OF PATHOLOGY AND GENOMIC MEDICINE Product code [id number] [facility] DEPARTMENT OF PATHOLOGY AND GENOMIC MEDICINE Dispense status Returned to BB not [facility] DEPARTMENT OF transfused PATHOLOGY AND GENOMIC MEDICINE Blood expiration date [id number] [facility] DEPARTMENT OF PATHOLOGY AND GENOMIC MEDICINE Blood type code 5100 [facility] DEPARTMENT OF PATHOLOGY AND GENOMIC MEDICINE Blood type O POSITIVE [facility] DEPARTMENT OF PATHOLOGY AND GENOMIC MEDICINE Performing Organization Address City/[facility]ode Phone Number [facility] DEPARTMENT OF PATHOLOGY AND [address] [place] [phone] GENOMIC MEDICINE Type and screen (09/25/2017 7:17 AM CDT)Only the most recent of4 resultswithin the time period is included. ABO grouping O [facility] DEPARTMENT OF PATHOLOGY AND GENOMIC MEDICINE Rh type POS [facility] DEPARTMENT OF PATHOLOGY AND GENOMIC MEDICINE Antibody screen (gel) NEG [facility] DEPARTMENT OF PATHOLOGY AND GENOMIC MEDICINE Specimen Blood Performing Organization Address [facility] Phone Number [facility] DEPARTMENT OF PATHOLOGY AND [address] [place] [phone] [place] [address] MEDICINE ECG 12 lead (09/25/2017 5:48 AM CDT)Only the most recent of2 resultswithin the time period is included. Ventricular rate 70 [facility] Atrial rate 70 [facility] DE interval 140 [facility] QRSD interval 140 [facility] QT interval 424 [facility] QTC interval 457 [facility] M[facility] P axis 1 9 [facility] QRS axis 1 70 [facility] T wave axis 29 [facility] MUSE EKG impression Normal sinus rhythm-Right bundle branch [facility] MUSE block-Abnormal ECG-In automated comparison with ECG of 28-MAR-2017 06:46,-No significant change was found- Performing Organization Address City/[facility] Phone Number [facility] MUSE [address] [place] [address] Spirometry pre & post w/ bronchodilator, diffusion, lung volumes (2017 4:51 PM CDT) FEV1 Pre 1.68 1.69 - 2.81 [facility] FEV1/FVC % Pre 69.93 68.66 - 87.29 % [facility] FVC Pre 2.41 2.22 - 3.54 L [facility] PEF Pre 1.78 3.62 - 7.39 L/s [facility] FEF 25-75% Pre 1.51 0.93 - 3.42 L/s [facility] DLCO Pre 15.70 13.86 - 26.86 ml/(min*mmHg) [facility] DL/VA Pre 4.16 3.16 - 5.79 ml/(min*mmHg*L) [facility] VA SB Pre 3.78 3.63 - 5.84 L [facility] DLCOc Pre 15.70 13.86 - 26.86 ml/(min*mmHg) [facility] KCOc SB Pre 4.16 3.16 - 5.79 ml/(min*mmHg*L) [facility] Hb Pre 13.40 g(Hb)/dL [facility] R0.5IN Pre 4.13 3.06 - 3.06 cmH2O*s/L [facility] FRCpl Pre 1.12 1.77 - 3.41 L [facility] RV Pre 0.45 1.30 - 2.45 L [facility] TLC Pre 3.19 3.62 - 5.59 L [facility] RV % TLC Pre 14.10 31.13 - 50.31 % [facility] VC Pre 2.74 2.22 - 3.54 L [facility] ERV Pre 0.67 0.72 - 0.72 L [facility] IC Pre 2.07 1.81 - 1.81 L [facility] sR0.5IN Pre 6.58 cmH2O*s [facility] Raw Pre 6.25 3.06 - 3.06 cmH2O*s/L [facility] sGaw Predicted 0.10 0.10 - 0.10 1/(cmH2O*s) [facility] FEV1 Predicted 2.25 [facility] FEV1 LLN 1.69 [facility] FEV1 % Pre of Predicted 74.8 % [facility] FVC Predicted 2.88 [facility] FVC LLN 2.22 [facility] FVC % Pre of Predicted 83.6 % [facility] FEV1/FVC % Predicted 78 [facility] FEV1/FVC % LLN 69 [facility] FEV1/FVC % Pre of Predicted 89.7 % [facility] FEF 25-75% Predicted 2.17 [facility] FEF 25-75% LLN 0.93 [facility] FEF 25-75% % Pre of Predicted 69.6 % [facility] PEF Predicted 5.51 [facility] PEF LLN 3.62 [facility] PEF % Pre of Predicted 32.4 % [facility] VC Predicted 2.88 [facility] VC LLN 2.22 [facility] VC % Pre of Predicted 95.0 % [facility] ERV Predicted 0.72 [facility] ERV LLN 0.72 [facility] ERV % Pre of Predicted 93.1 % [facility] FRCpl % Predicted 2.59 [facility] FRCpl % LLN 1.77 [facility] FRCpl % Pre of Predicted 43.1 % [facility] IC Predicted 1.81 [facility] IC LLN 1.81 [facility] IC % Pre of Predicted 114.5 % [facility] RV Predicted 1.87 [facility] RV LLN 1.30 [facility] RV % Pre of Predicted 24.0 % [facility] RV % TLC Predicted 41 [facility] RV % TLC LLN 31 [facility] RV % TLC % Pre of Predicted 34.6 % [facility] TLC Predicted 4.60 [facility] TLC LLN 3.62 [facility] TLC % Pre of Predicted 69.2 % [facility] Raw Predicted 3.06 [facility] Raw LLN 3.06 [facility] Raw % Pre of Predicted 204.4 % [facility] R0.5IN Predicted 3.06 [facility] R0.5IN LLN 3.06 [facility] R0.5IN % Pre of Predicted 135.0 % [facility] sGaw Predicted 0.10 [facility] sGaw LLN 0.10 [facility] sGaw % Pre of Predicted 98.5 % [facility] DLCO Predicted 20.36 [facility] DLCO LLN 13.86 [facility] DLCO % Pre of Predicted 77.1 % [facility] DLCOc Predicted 20.36 [facility] DLCOc LLN 13.86 [facility] DLCOc % Pre of Predicted 77.1 % [facility] DL/VA Predicted 4.47 [facility] DL/VA LLN 3.16 [facility] DL/VA % Pre of Predicted 92.9 % [facility] KCOc SB Predicted 4.47 [facility] KCOc SB LLN 3.16 [facility] KCOc SB % Pre of Predicted 92.9 % [facility] VA SB Predicted 4.73 [facility] VA SB LLN 3.63 [facility] VA SB % Pre of Predicted 79.8 % [facility] MIP Predicted 54.11 [facility] MIP LLN 24.37 [facility] MEP Predicted 67.59 [facility] MEP LLN 23.77 [facility] MVV Predicted 81 [facility] MVV LLN 69 [facility] Performing Organization Address [facility] [place] Phone Number [address] [address] Partial thromboplastin time, activated (08/30/2017 2:15 PM CDT)Only the most recent of2 resultswithin the time period is included. PTT 35.2 23.0 - 36.0 sec [facility] DEPARTMENT OF PATHOLOGY Comment: AND GENOMIC MEDICINE PTT therapeutic range for unfractionated heparin is 61.0-112.0 seconds which corresponds to Anti-Xa 0.3-0.7 U/ml. Specimen Blood Performing Organization Address [facility] [place] Phone Number [facility] DEPARTMENT OF PATHOLOGY AND [address] [place] [address] Prothrombin time with INR (08/30/2017 2:15 PM CDT)Only the most recent of2 resultswithin the time period is included. Prothrombin time 13.8 12.0 - 15.0 sec [facility] DEPARTMENT OF PATHOLOGY AND GENOMIC MEDICINE INR 1.0 [facility] DEPARTMENT OF Comment: PATHOLOGY AND GENOMIC The International Normalized Ratio (INR) is a therapeutic MEDICINE monitoring tool for patients who are stable on oral anticoagulant therapy. An INR of 2.0-3.0 is suggested for deep vein thrombosis/pulmonary embolism. Specimen Blood Performing Organization Address [facility] [place] Phone Number [facility] DEPARTMENT OF PATHOLOGY AND [address] [place] [phone] [employer] MEDICINE Comprehensive metabolic panel (08/30/2017 2:15 PM CDT)Only the most recent of2 resultswithin the time period is included. Sodium 143 135 - 148 mEq/L [facility] DEPARTMENT OF PATHOLOGY AND GENOMIC MEDICINE Potassium 4.7 3.5 - 5.0 mEq/L [facility] DEPARTMENT OF PATHOLOGY AND GENOMIC MEDICINE Chloride 103 98 - 112 mEq/L [facility] DEPARTMENT OF PATHOLOGY AND GENOMIC MEDICINE CO2 27 24 - 31 mEq/L [facility] DEPARTMENT OF PATHOLOGY AND GENOMIC MEDICINE Anion gap 13@ANIO 7 - 15 mEq/L [facility] DEPARTMENT OF PATHOLOGY AND GENOMIC MEDICINE BUN 17 8 - 23 mg/dL [facility] DEPARTMENT OF PATHOLOGY AND GENOMIC MEDICINE Creatinine 1.3 (H) 0.5 - 0.9 mg/dL [facility] DEPARTMENT OF PATHOLOGY AND GENOMIC MEDICINE Glucose 90 65 - 99 mg/dL [facility] DEPARTMENT OF PATHOLOGY AND GENOMIC MEDICINE Calcium 7.1 (L) 8.8 - 10.2 mg/dL [facility] DEPARTMENT OF PATHOLOGY AND GENOMIC MEDICINE Protein 8.3 6.3 - 8.3 g/dL [facility] DEPARTMENT OF Comment: PATHOLOGY AND GENOMIC [place] 4.6-7.0 g/dL MEDICINE 1 week 4.4-7.6 g/dL 7 months-1year5.1-7.3 g/dL 1-2 years5.6-7.5 g/dL >3 years6.0-8.0 g/dL 18-150 6.3-8.3 g/dL Albumin 2.8 (L) 3.5 - 5.0 g/dL [facility] DEPARTMENT OF PATHOLOGY AND GENOMIC MEDICINE A/G ratio 0.5 (L) 0.7 - 3.8 [facility] DEPARTMENT OF PATHOLOGY AND GENOMIC MEDICINE Alkaline phosphatase 79 35 - 104 U/L [facility] DEPARTMENT OF PATHOLOGY AND GENOMIC MEDICINE AST 31 10 - 35 U/L [facility] DEPARTMENT OF PATHOLOGY AND GENOMIC MEDICINE ALT 22 5 - 50 U/L [facility]PARTMENT OF PATHOLOGY AND GENOMIC MEDICINE Total bilirubin <0.2 0.0 - 1.2 mg/dL [facility]OLOGY AND GENOMIC MEDICINE Specimen Plasma specimen Performing Organization Address City/State/[facility] Phone Number [facility] DEPART[facility] OF PATHOLOGY AND [address] [place] [address] [facility] [address] Chest External Study (08/21/2017 8:11 AM CDT) Narrative Performed At This exam was not acquired at a [facility] facility and has not been RADIANT interpreted by a [facility] Provider.The exam was imported into our imaging system for comparisons purposes. Performing Organization Address City/[facility]/Zipcode Phone Number [facility] [address] [place] [address] CT Chest W Contrast (08/21/2017) Narrative Performed At XR Chest 1 Vw (04/24/2017 5:52 PM GENERATOR REBUILDER) Narrative Performed At EXAMINATION:XR CHEST 1 VW RADIANT CLINICAL HISTORY:Chest Tube Placement COMPARISON:None IMPRESSION: 1.Right pleural tube extends to the right lung apex. There is no pneumothorax. 2.Heart size is prominent. There is some vascular congestion. [id number] Procedure Note Interface, Radiology Results Incoming - 04/24/2017 5:57 PM GENERATOR REBUILDER EXAMINATION: XR CHEST 1 VW CLINICAL HISTORY: Chest Tube Placement COMPARISON: None IMPRESSION: 1. Right pleural tube extends to the right lung apex. There is no pneumothorax. 2. Heart size is prominent. There is some vascular congestion. [id number] Performing Organization Address [facility]s Phone Number [facility] [address] [place] [address] Aerobic culture (04/24/2017 5:30 PM GENERATOR REBUILDER) Aerobic culture isolate Staphylococcus, coagulase negative [facility] DEPARTMENT OF Recovered in Broth only: PATHOLOGY AND GENOMIC , identification/susceptibility to follow MEDICINE (A) Comment: Specimen Information Specimen Source: Tissue Specimen Site: Lung nodule Specimen Tissue Organism Antibiotic Method Susceptibility Staphylococcus coagulase Ampicillin BALTAZAR mcg/mL: Resistant negative Staphylococcus coagulase Clindamycin BALTAZAR <=0.5 mcg/mL: Susceptible negative Staphylococcus coagulase Erythromycin BALTAZAR <=0.5 mcg/mL: Susceptible negative Staphylococcus coagulase Levofloxacin BALTAZAR <=1 mcg/mL: Susceptible negative Staphylococcus coagulase Linezolid BALTAZAR 2 mcg/mL: Susceptible negative Staphylococcus coagulase Minocycline BALTAZAR <=1 mcg/mL: Susceptible negative Staphylococcus coagulase Oxacillin BALTAZAR <=0.25 mcg/mL: Susceptible negative Staphylococcus coagulase Penicillin G BALTAZAR 1 mcg/mL: Resistant negative Staphylococcus coagulase Rifampin BALTAZAR <=0.5 mcg/mL: Susceptible negative Staphylococcus coagulase Tetracycline BALTAZAR <=0.5 mcg/mL: Susceptible negative Staphylococcus coagulase Vancomycin BALTAZAR 1 mcg/mL: Susceptible negative Staphylococcus coagulase Trimethoprim/Sulfamethoxa BALTAZAR <=0.5/9.5 mcg/mL: negative zole Susceptible Performing Organization Address [facility] Phone Number [facility] DEPARTMENT OF PATHOLOGY AND [address] [place] [phone] [facility] MEDICINE ANESTHESIA INTUBATION (03/29/2017 8:46 AM GENERATOR REBUILDER) Narrative Performed At Robert Roach MD 03/28/20178:38 AM Airway Date/Time: 03/28/2017 8:30 AM Performed by: ROBERT ROACH Authorized by: MUMTAZ GANT Location:OR Difficult Airway: No Resident/OTORHINOLARYNGOLOGIST/AA:ROBERT ROACH Performed by: resident/OTORHINOLARYNGOLOGIST/AA Preoxygenated with 100% O2: Yes C-spine Precautions Maintained Throughout: Yes Mask Ventilation:Easy mask Final Airway Type:Endotracheal airway Final Endotracheal Airway:ETT Cuffed: Yes Technique Used:Direct laryngoscopy Blade Type:Raul Laryngoscope Blade/Videolaryngoscope Blade Size:3 ETT Size (mm):8.0 Measured from:Lips ETT to Lips (cm):24 Placement Verified by: CO2 detection, direct visualization and equal breath sounds Laryngoscopic view:Grade I - full view of glottis Rapid Sequence Induction (RSI): No Number of Attempts at Approach:2 Cytology (non-gynecological) request (03/28/2017 1:04 PM GENERATOR REBUILDER)Only the most recent of2 resultswithin the time period is included. [facility] PATHOLOGY AND GENOMIC MEDICINE Cytology See link below for PDF [facility] DEPARTMENT OF (non-gynecological) report Lab Report PATHOLOGY AND GENOMIC MEDICINE Result status This is Final Report to [facility] DEPARTMENT OF [id number] PATHOLOGY AND GENOMIC MEDICINE Performing Organization Address City/State/Zipcode Phone Number [facility] DEPARTMENT OF PATHOLOGY AND [address] [place] [address] GENOMIC MEDICINE after 03/16/2017 Insurance Payer Benefit Plan / Group Subscriber ID Type Phone Address MEDICARE MEDICARE PART A AND B xxxxxxxxxx Medicare [place], [place] Advance Directives Patient has advance care planning documents on file. For more information, please contact:[place] [id number] [place] [address]
[2018-03-17] MEDS ORDERED: ONDANSETRON 4 MG/2 ML VIAL ONE (15:00)
[2018-03-17] MEDS ORDERED: FENTANYL CITR 100 MCG/2 ML ONE (15:00)
[2018-03-17] MEDS ORDERED: NA CHLORIDE 0.9% 1,000 ML ONE (15:00)
--- NOTE | 2018-03-17 15:27 | RAD REPORT ---
EXAM DESCRIPTION: CT - Chest Abd Pelvis Wo Con - 03/17/2018 3:02 pm CLINICAL HISTORY: Chest pain, abdominal pain COMPARISON: CT chest August 2017 TECHNIQUE: During dynamic enhancement using 100 milliliters nonionic IV contrast, axial 5 millimeter thick images of the chest, abdomen and pelvis were obtained. Biphasic technique was utilized through the abdomen. Oral contrast was administered. All CT scans are performed using dose optimization technique as appropriate and may include automated exposure control or mA/KV adjustment according to patient size. FINDINGS: Patient has multiple variably sized noncalcified pulmonary nodules. These are stable in si ze, number and morphology since August 21, 2017. Nodules were reported as being stable on the August study. No new mass. No pneumothorax or pleural effusion. No chest wall mass or abnormal axillary lymphadeno eduardo seen. Mediastinal and hilar regions show no mass or lymphadenopathy. No significant cardiac f inding. No acute rib finding seen. Old rib trauma is noted and there are degenerative changes in the vertebrae. The liver, spleen and pancreas show no significant findings. Gallbladder and biliary tree are normal . No hydronephrosis or suspicious renal finding. Function cannot be assessed. Isodense masses and pyelo nephritis cannot be excluded. No adrenal abnormalities. No urinary bladder abnormalities. No uterus or ovarian acute finding. Fibroid is seen in the fundus. Hyperdense 18 millimeter mass along the rig ht side of the vaginal wall is probably a high protein content cyst. No adjacent inflammatory strandi ng. This is not likely of any clinical significance. Pelvic floor laxity is present. No dilated bowel loops or focal ball bowel wall thickening. No free air, free fluid or inflammatory stranding. No hernia, mass or bulky lymphadenopathy. No significant bone or vascular finding. Postsurgical changes are present in the lumbar spine. IMPRESSION: CT chest study shows stable pulmonary nodules with no acute or suspicious chest finding. CT abdomen and pelvis imaging shows no acute findings. Exam assessment is limited in the absence of oral and IV contrast.
--- NOTE | 2018-03-17 15:34 | RAD REPORT ---
EXAM DESCRIPTION: RAD - Chest Single View - 03/17/2018 3:11 pm CLINICAL HISTORY: Back pain, shortness of breath COMPARISON: December 2014 TECHNIQUE: AP portable chest image was obtained 1457 hours . FINDINGS: No focal lung parenchymal process. Lung markings are not significantly different from comp arison. Heart and vasculature are normal. No measurable pleural effusion and no pneumothorax. No acut e bony abnormality seen. No acute aortic findings suspected. IMPRESSION: No acute cardiopulmonary process. No significant change from comparison.
[2018-03-17 15:38] LABS: Absolute Lymphocytes (CBC) 1.7 K/uL (0.7-4.9); Absolute Monocytes 0.5 K/uL (0.1-1.3); Absolute Neutrophil 3.1 K/uL (1.8-8.0); Basophils % 0.6 % (0-1.3); Eosinophils % 3.9 % (0-4.4); Lymphocytes % 30.7 % (15.3-44.8); MCH 29.7 pg (27.0-35.0); MCV 88.9 fL (80-100); MPV 8.2 fL (7.6-11.3); Monocytes % 9.4 % (3.3-12.3); RBC Red Blood Cell Count 4.05 M/uL (3.86-4.86)
[2018-03-17 15:56] LABS: ALT/SGPT 34 U/L (12-78); AST/SGOT 27 U/L (15-37); Albumin 3.6 g/dL (3.4-5.0); Alkaline Phosphatase 89 U/L (45-117); BUN Blood Urea Nitrogen 19 mg/dL (7-18); Bicarbonate 33 mmol/L (21-32); Bilirubin Direct < 0.1 mg/dL (0-0.2); Bilirubin Total 0.3 mg/dL (0.2-1.0); Glucose Level 90 mg/dL (74-106); Lipase 81 U/L (73-393); Magnesium 2.3 mg/dL (1.8-2.4); NT PRO-BNP 51 pg/mL (<125); Potassium 3.6 mmol/L (3.5-5.1); Protein, Total 7.5 g/dL (6.4-8.2); Sodium Level 141 mmol/L (136-145); Troponin (Emerg Dept Use Only) < 0.02 ng/mL (0.0-0.045)
[2018-03-17 16:00] LABS: Protime INR 1.08
--- NOTE | 2018-03-17 16:19 | ER ---
Nurse's Notes [facility] Name: Tarah Dennis Age: 62 yrs Sex: Female : 1955 Arrival Date: 03/17/2018 Time: 13:00 Bed 14 Private MD: Diagnosis: Dyspnea;Obesity, unspecified;Unspecified kidney failure;Urinary tract infection, site not specified;Pleurisy Presentation: 03/17 13:10 Presenting complaint: Patient states: I woke up yesterday I have been having shortness la1 of breath and pain in upper back and side, It hurts more when I take a deep a breath. I also have nodules in my lungs that I see dr torres and the cancer center because they dont know what they are. Transition of care: patient was not received from another setting of care. Onset of symptoms was March 17, 2018. Risk Assessment: Do you want to hurt yourself or someone else? Patient reports no desire to harm self or others. Initial Sepsis Screen: Does the patient meet any 2 criteria? No. Patient's initial sepsis screen is negative. Does the patient have a suspected source of infection? No. Patient's initial sepsis screen is negative. Care prior to arrival: None. 13:10 Method Of Arrival: Ambulatory la1 13:10 Acuity: DELORES 3 la1 Historical: - Allergies: 13:10 No Known Allergies; la1 - Home Meds: 14:15 Breo Ellipta 200-25 mcg/dose inhalation dsdv 1 puff once daily [Active]; morphine 15 mg rb1 Oral TbER 1 tab every 12 hours [Active]; gabapentin 300 mg oral cap 1 cap 3 times per day [Active]; sertraline 100 mg oral tab 1 tab once daily [Active]; venlafaxine 100 mg oral tab 1 tab 2 times per day [Active]; quetiapine 100 mg oral tab 1 tab 2 times per day [Active]; amitriptyline 10 mg Oral tab 1 tab bedtime [Active]; hydroxyzine HCl 25 mg Oral tab 1 tab 2 times per day [Active]; hydroxychloroquine 200 mg oral tab 1 tab once daily [Active]; simvastatin 40 mg Oral tab 1 tab once daily [Active]; Allopurinol 30 mg Oral 1 tab once daily [Active]; - PMHx: 13:10 Hypertension; High Cholesterol; Asthma; la1 - PSHx: 13:10 back fusion; la1 - Immunization history:: Adult Immunizations up to date. - Social history:: Smoking status: Patient/guardian denies using tobacco. - Ebola Screening: : No symptoms or risks identified at this time. - Family history:: not pertinent. Screenin:00 Abuse screen: Denies threats or abuse. Nutritional screening: No deficits noted. rb1 Tuberculosis screening: No symptoms or risk factors identified. Fall Risk None identified. Assessment: 14:00 General: Appears in no apparent distress. comfortable, Behavior is calm, cooperative. rb1 General:. Pain: Complains of pain in back Pain currently is 9 out of 10 on a pain scale. Pain began 1 day ago. Neuro: Level of Consciousness is awake, alert, obeys commands, Oriented to person, place, time, situation. Cardiovascular: Capillary refill < 3 seconds is brisk in bilateral fingers. Respiratory: Reports shortness of breath Airway is patent Respiratory effort is even, unlabored, Respiratory pattern is regular, symmetrical, Denies cough. Respiratory:. GI: No signs and/or symptoms were reported involving the gastrointestinal system. : No signs and/or symptoms were reported regarding the genitourinary system. EENT: Reports nasal congestion. Derm: Skin is dry, Skin is normal, Skin temperature is warm. 15:00 Reassessment: Patient appears in no apparent distress at this time. No changes from rb1 previously documented assessment. 16:00 Reassessment: Patient appears in no apparent distress at this time. Patient and/or rb1 family updated on plan of care and expected duration. Pain level reassessed. Patient is alert, oriented x 3, equal unlabored respirations, skin warm/dry/pink. Family at bedside. 17:00 Reassessment: Patient appears in no apparent distress at this time. No changes from rb1 previously documented assessment. Family at bedside. 18:00 Reassessment: Patient appears in no apparent distress at this time. Patient and/or rb1 family updated on plan of care and expected duration. Pain level reassessed. Patient is alert, oriented x 3, equal unlabored respirations, skin warm/dry/pink. Family at bedside. 19:15 Reassessment: Patient appears in no apparent distress at this time. Patient and/or jb4 family updated on plan of care and expected duration. Pain level reassessed. Patient is alert, oriented x 3, equal unlabored respirations, skin warm/dry/pink. Family an pt updated on admission to 2nd floor, Physician notified of family's desire to talk to him. 19:24 Reassessment: Physician at the bedside updating pt on need for admision. jb4 20:08 Reassessment: report called to Tere Wallace LVN. bb Vital Signs: 13:13 Pulse 97; Resp 16; Temp 97.7(TE); Pulse Ox 98% on R/A; Weight 85.73 kg; Height 5 ft. 4 la1 in. (162.56 cm); 13:14 BP 128 / 67; la1 14:15 BP 118 / 67; Pulse 98; Resp 18; Pulse Ox 98% on R/A; rb1 15:15 BP 122 / 74; Pulse 88; Resp 17; Pulse Ox 95% on R/A; rb1 16:15 BP 127 / 89; Pulse 90; Resp 19; Pulse Ox 98% on R/A; rb1 19:15 BP 124 / 69; Pulse 81; Resp 18; Pulse Ox 97% on R/A; jb4 19:59 Temp 98.9(O); jb4 20:00 BP 134 / 62; Pulse 79; Resp 16; Pulse Ox 94% on R/A; jb4 13:13 Body Mass Index 32.44 (85.73 kg, 162.56 cm) la1 ED Course: 13:00 Patient arrived in ED. as 13:12 Triage completed. la1 13:12 Arm band placed on right wrist. la1 13:57 Ulises Burgos MD is Attending Physician. hugo 14:00 Patient has correct armband on for positive identification. Bed in low position. Call rb1 light in reach. Side rails up X 1. Pulse ox on. NIBP on. Warm blanket given. Pillow given. 14:09 Sonia Thomas, RN is Primary Nurse. rb1 15:01 CT completed. Patient tolerated procedure well. Patient moved back from CT. kw1 15:06 CT Chest Abdomen Pelvis W/O Contrast: no iv , no oral In Process Unspecified. EDMS 15:08 X-ray completed. Patient tolerated procedure well. la2 15:09 XRAY Chest (1 view) In Process Unspecified. EDMS 15:22 Initial lab(s) drawn, by me, sent to lab. Inserted saline lock: 22 gauge in right dh3 antecubital area, using aseptic technique. Blood collected. 15:30 EKG done, by ED staff, reviewed by Ulises Burgos MD. 3 16:17 oJhnna Gann MD is Hospitalizing Provider. hugo 18:15 Ultrasound completed. Patient tolerated well. sg3 19:00 Report given to MIRZA Mullins. rb1 20:11 No provider procedures requiring assistance completed. Patient admitted, IV remains in bb place. Administered Medications: 15:30 Drug: NS 0.9% 1000 ml Route: IV; Rate: 125 ml/hr; Site: right antecubital; rb1 19:00 Follow up: Response: No adverse reaction; IV Status: Infusion discontinued prior to jb4 shift change. 15:30 Drug: fentaNYL (PF) 25 mcg Route: IVP; Site: right antecubital; rb1 15:45 Follow up: Response: No adverse reaction; Pain is decreased rb1 15:30 Drug: Zofran 4 mg Route: IVP; Site: right antecubital; rb1 15:45 Follow up: Response: No adverse reaction; Nausea is decreased rb1 16:11 Not Given (provider changed order): Rocephin - (cefTRIAXone) 1 grams IVPB once over 30 rb1 mins; (mix in 50 mL NS) 16:15 Drug: Rocephin 1 grams Route: IV; Rate: calculated rate; Site: right antecubital; rb1 16:45 Follow up: Response: No adverse reaction; IV Status: Completed infusion rb1 18:06 Drug: Lovenox 1 mg/kg Route: Sub-Q; Site: abdomen; rb1 18:30 Follow up: Response: No adverse reaction rb1 18:06 Drug: Zithromax 500 mg Route: IVPB; Infused Over: 1 hrs; Site: right antecubital; rb1 20:21 Follow up: Response: No adverse reaction; IV Status: Infusion continued upon admission jb4 Outcome: 16:18 Decision to Hospitalize by Provider. hugo 20:10 Admitted to Tele accompanied by tech, family with patient, via stretcher, room 206, bb with chart, Report called to Tere Wallace LVN 20:10 Condition: stable 20:10 Instructed on the need for admit. 20:24 Patient left the ED. jb4 Signatures: Dispatcher [employer] EDMS Aubrey, Ulises, Rubi Al MD, cha, Brenda, RN RN bb Gabriel Camilo RN RN la1 Sonia Thomas RN RN Paul Ngo RN RN jb4 Eliza Hopkins 3 Winnie Sullivan nd2 Cailin Elam 1 Sheryl Ghosh 3 Corrections: (The following items were deleted from the chart) 19:28 19:15 BP 130 / 105; Pulse 81bpm; Resp 18bpm; Pulse Ox 97% RA; jb4 jb4 20:24 20:22 Response: No adverse reaction; IV Status: Infusion discontinued prior to shift jb4 change. jb4
--- NOTE | 2018-03-17 16:19 | EDPHYS ---
Physician Documentation [facility] Name: Tarah Dennis Age: 62 yrs Sex: Female : 1955 Arrival Date: 03/17/2018 Time: 13:00 Bed 14 Private MD: Ulises Garcia HPI: 03/17 14:43 This 62 yrs old Female presents to ER via Ambulatory with complaints of Lung hugo Pain, Rib Pain. 14:43 The patient presents with pain that is acute, and decreased range of motion. The hugo symptoms are located in the left low back, left mid back, right mid back and right low back. The pain does not radiate. The problem was sustained from unknown cause. Onset: The symptoms/episode began/occurred 3 day(s) ago. Modifying factors: The patient symptoms are alleviated by remaining still, the patient symptoms are aggravated by any movement, bending, coughing, movement. Associated signs and symptoms: Pertinent positives:. The patient has shortness of breath at rest, with light activity, while working. Onset: The symptoms/episode began/occurred 3 day(s) ago. The patient's shortness of breath is aggravated by coughing, exertion, light activity, walking. Historical: - Allergies: 13:10 No Known Allergies; la1 - Home Meds: 14:15 Breo Ellipta 200-25 mcg/dose inhalation dsdv 1 puff once daily [Active]; morphine 15 mg rb1 Oral TbER 1 tab every 12 hours [Active]; gabapentin 300 mg oral cap 1 cap 3 times per day [Active]; sertraline 100 mg oral tab 1 tab once daily [Active]; venlafaxine 100 mg oral tab 1 tab 2 times per day [Active]; quetiapine 100 mg oral tab 1 tab 2 times per day [Active]; amitriptyline 10 mg Oral tab 1 tab bedtime [Active]; hydroxyzine HCl 25 mg Oral tab 1 tab 2 times per day [Active]; hydroxychloroquine 200 mg oral tab 1 tab once daily [Active]; simvastatin 40 mg Oral tab 1 tab once daily [Active]; Allopurinol 30 mg Oral 1 tab once daily [Active]; - PMHx: 13:10 Hypertension; High Cholesterol; Asthma; la1 - PSHx: 13:10 back fusion; la1 - Immunization history:: Adult Immunizations up to date. - Social history:: Smoking status: Patient/guardian denies using tobacco. - Ebola Screening: : No symptoms or risks identified at this time. - Family history:: not pertinent. ROS: 14:43 Constitutional: Negative for fever, chills, and weight loss, Eyes: Negative for injury, hugo pain, redness, and discharge, ENT: Negative for injury, pain, and discharge, Neck: Negative for injury, pain, and swelling, Cardiovascular: Negative for chest pain, palpitations, and edema, Respiratory: Negative for shortness of breath, cough, wheezing, and pleuritic chest pain, Abdomen/GI: Negative for abdominal pain, nausea, vomiting, diarrhea, and constipation, : Negative for injury, bleeding, discharge, and swelling, MS/Extremity: Negative for injury and deformity, Skin: Negative for injury, rash, and discoloration, Neuro: Negative for headache, weakness, numbness, tingling, and seizure, Psych: Negative for depression, anxiety, suicide ideation, homicidal ideation, and hallucinations, Allergy/Immunology: Negative for hives, rash, and allergies, Endocrine: Negative for neck swelling, polydipsia, polyuria, polyphagia, and marked weight changes, Hematologic/Lymphatic: Negative for swollen nodes, abnormal bleeding, and unusual bruising. 14:43 Back: Positive for decreased range of motion, pain at rest, pain with movement, flank pain, of the left low back, left mid back, right mid back and right low back. Exam: 14:43 Constitutional: This is a well developed, well nourished patient who is awake, alert, hugo and in no acute distress. Head/Face: Normocephalic, atraumatic. Eyes: Pupils equal round and reactive to light, extra-ocular motions intact. Lids and lashes normal. Conjunctiva and sclera are non-icteric and not injected. Cornea within normal limits. Periorbital areas with no swelling, redness, or edema. ENT: Nares patent. No nasal discharge, no septal abnormalities noted. Tympanic membranes are normal and external auditory canals are clear. Oropharynx with no redness, swelling, or masses, exudates, or evidence of obstruction, uvula midline. Mucous membranes moist. Neck: Trachea midline, no thyromegaly or masses palpated, and no cervical lymphadenopathy. Supple, full range of motion without nuchal rigidity, or vertebral point tenderness. No Meningismus. Chest/axilla: Normal chest wall appearance and motion. Nontender with no deformity. No lesions are appreciated. Cardiovascular: Regular rate and rhythm with a normal S1 and S2. No gallops, murmurs, or rubs. Normal PMI, no JVD. No pulse deficits. Respiratory: Lungs have equal breath sounds bilaterally, clear to auscultation and percussion. No rales, rhonchi or wheezes noted. No increased work of breathing, no retractions or nasal flaring. Abdomen/GI: Soft, non-tender, with normal bowel sounds. No distension or tympany. No guarding or rebound. No evidence of tenderness throughout. Female : Normal external genitalia. MS/ Extremity: Pulses equal, no cyanosis. Neurovascular intact. Full, normal range of motion. Neuro: Awake and alert, GCS 15, oriented to person, place, time, and situation. Cranial nerves II-XII grossly intact. Motor strength 5/5 in all extremities. Sensory grossly intact. Cerebellar exam normal. Normal gait. Psych: Awake, alert, with orientation to person, place and time. Behavior, mood, and affect are within normal limits. 14:43 Back: ROM is painful, normal spinal alignment noted, CVA tenderness, that is mild, that is moderate, is noted bilaterally, muscle spasm, is appreciated in the left low back, left mid back, right mid back and right low back. 15:11 Musculoskeletal/extremity: DVT Exam: No signs of deep vein thrombosis. no pain, no hugo swelling, no tenderness, negative Homans' sign noted on exam, no appreciated bluish discoloration, no erythema, no increased warmth. Vital Signs: 13:13 Pulse 97; Resp 16; Temp 97.7(TE); Pulse Ox 98% on R/A; Weight 85.73 kg; Height 5 ft. 4 la1 in. (162.56 cm); 13:14 BP 128 / 67; la1 14:15 BP 118 / 67; Pulse 98; Resp 18; Pulse Ox 98% on R/A; rb1 15:15 BP 122 / 74; Pulse 88; Resp 17; Pulse Ox 95% on R/A; rb1 16:15 BP 127 / 89; Pulse 90; Resp 19; Pulse Ox 98% on R/A; rb1 19:15 BP 124 / 69; Pulse 81; Resp 18; Pulse Ox 97% on R/A; jb4 19:59 Temp 98.9(O); jb4 20:00 BP 134 / 62; Pulse 79; Resp 16; Pulse Ox 94% on R/A; jb4 13:13 Body Mass Index 32.44 (85.73 kg, 162.56 cm) la1 MDM: 13:57 Patient medically screened. [facility] 14:46 Data reviewed: vital signs, nurses notes, lab test result(s), EKG, radiologic studies, [facility] CT scan, plain films. 03/17 14:42 Order name: Basic Metabolic Panel; Complete Time: 16:09 [facility] 03/17 14:42 Order name: CBC with Diff; Complete Time: 16:09 [facility] 03/17 14:42 Order name: LFT's; Complete Time: 16:09 [facility] 03/17 14:42 Order name: Magnesium; Complete Time: 16:09 [facility] 03/17 14:42 Order name: NT PRO-BNP; Complete Time: 16:09 [facility] 03/17 14:42 Order name: PT-INR; Complete Time: 16:14 [facility] 03/17 14:42 Order name: Troponin (emerg Dept Use Only); Complete Time: 16:09 [facility] 03/17 14:42 Order name: XRAY Chest (1 view); Complete Time: 15:40 [facility] 03/17 14:42 Order name: Influenza Screen (a \T\ B); Complete Time: 16:25 [facility] 03/17 14:42 Order name: Lipase; Complete Time: 16:09 [facility] 03/17 14:42 Order name: Urine Culture [facility] 03/17 14:42 Order name: CT Chest Abdomen Pelvis W/O Contrast: no iv , no oral; Complete Time: 15:40 [facility] 03/17 14:42 Order name: D-Dimer; Complete Time: 16:14 [facility] 03/17 15:40 Order name: Urine Dipstick--Ancillary (enter results) 03/17 14:42 Order name: EKG; Complete Time: 14:43 [facility] 03/17 14:42 Order name: Cardiac monitoring; Complete Time: 16:55 [facility] 03/17 14:42 Order name: EKG - Nurse/Tech; Complete Time: 16:55 [facility] 03/17 14:42 Order name: IV Saline Lock; Complete Time: 15:26 [facility] 03/17 16:26 Order name: CONS Physician Consult [facility] 03/17 16:26 Order name: US Extremity Venous W Compression Allen [facility] 03/17 16:26 Order name: Echo with Doppler [facility] 03/17 16:26 Order name: Vent Perfusion VQ Scan [facility] 03/17 18:28 Order name: US [facility] 03/17 14:42 Order name: Labs collected and sent; Complete Time: 15:26 [facility] 03/17 14:42 Order name: O2 Per Protocol; Complete Time: 15:26 [facility] 03/17 14:42 Order name: O2 Sat Monitoring; Complete Time: 15:26 [facility] 03/17 14:42 Order name: Urine Dipstick-Ancillary (obtain specimen); Complete Time: 19:56 [facility] Administered Medications: 15:30 Drug: NS 0.9% 1000 ml Route: IV; Rate: 125 ml/hr; Site: right antecubital; rb1 19:00 Follow up: Response: No adverse reaction; IV Status: Infusion discontinued prior to jb4 shift change. 15:30 Drug: fentaNYL (PF) 25 mcg Route: IVP; Site: right antecubital; rb1 15:45 Follow up: Response: No adverse reaction; Pain is decreased rb1 15:30 Drug: Zofran 4 mg Route: IVP; Site: right antecubital; rb1 15:45 Follow up: Response: No adverse reaction; Nausea is decreased rb1 16:11 Not Given (provider changed order): Rocephin - (cefTRIAXone) 1 grams IVPB once over 30 rb1 mins; (mix in 50 mL NS) 16:15 Drug: Rocephin 1 grams Route: IV; Rate: calculated rate; Site: right antecubital; rb1 16:45 Follow up: Response: No adverse reaction; IV Status: Completed infusion rb1 18:06 Drug: Lovenox 1 mg/kg Route: Sub-Q; Site: abdomen; rb1 18:30 Follow up: Response: No adverse reaction rb1 18:06 Drug: Zithromax 500 mg Route: IVPB; Infused Over: 1 hrs; Site: right antecubital; rb1 20:21 Follow up: Response: No adverse reaction; IV Status: Infusion continued upon admission jb4 Disposition: 03/17/18 16:18 Hospitalization ordered by Johnna Gann for Observation. Preliminary diagnosis are Dyspnea, Obesity, unspecified, Unspecified kidney failure, Urinary tract infection, site not specified, Pleurisy. - Bed requested for Telemetry/MedSurg (observation). - Status is Observation. jb4 - Condition is Fair. - Problem is new. - Symptoms have improved. UTI on Admission? Yes Signatures: Dispatcher [employer] EDSD Ulises Burgos MD MD cha Attema, Lee RN RN la1 Sonia Thomas RN RN rb1 Paul Suarez RN RN jb4 Christina Cummings RN RN df Corrections: (The following items were deleted from the chart) 17:03 16:18 Hospitalization Ordered by Johnna Gann MD for Observation. Preliminary diagnosis df is Dyspnea; Obesity, unspecified; Unspecified kidney failure; Urinary tract infection, site not specified; Pleurisy. Bed requested for Telemetry/MedSurg (observation). Status is Observation. Condition is Fair. Problem is new. Symptoms have improved. UTI on Admission? Yes. hugo 20:24 17:03 03/17/2018 16:18 Hospitalization Ordered by Johnna Gann MD for Observation. jb4 Preliminary diagnosis is Dyspnea; Obesity, unspecified; Unspecified kidney failure; Urinary tract infection, site not specified; Pleurisy. Bed requested for Telemetry/MedSurg (observation). Status is Observation. Condition is Fair. Problem is new. Symptoms have improved. UTI on Admission? Yes. df
[2018-03-17] MEDS ORDERED: CEFTRIAXONE/SWI 1gm 1 GM/10 ML SYR ONE (16:21)
[2018-03-17] MEDS ORDERED: ACETAMINOPHEN 500 MG TAB PO PRN (17:57)
[2018-03-17] MEDS ORDERED: ONDANSETRON 4 MG/2 ML VIAL IV PRN (17:57)
[2018-03-17] MEDS ORDERED: ENOXAPARIN 80 MG/0.8 ML SQ ONE (18:01)
[2018-03-17] MEDS ORDERED: AZITHROMYCIN 500 MG/250 ML BAG ONE (18:01)
[2018-03-17] MEDS ORDERED: HYDROCODONE/APAP 7.5/325 MG TAB PO PRN (18:05)
--- NOTE | 2018-03-17 18:27 | RAD REPORT ---
EXAM DESCRIPTION: US - Extrem Venous W Compress Allen - 03/17/2018 6:15 pm CLINICAL HISTORY: Leg pain swelling COMPARISON: None. TECHNIQUE: Real-time sonographic evaluation of the bilateral lower extremity common femoral, superfi cial femoral, popliteal and posterior tibial veins was performed. FINDINGS: Normal compressibility, flow augmentation, phasic flow and spontaneous flow are identified in the left and right lower extremity common femoral, superficial femoral, popliteal and posterior t ibial veins. No intraluminal filling defects seen. IMPRESSION: No DVT in either lower extremity.
[2018-03-17 19:34] LABS: Urine Blood NEGATIVE (NEG); Urine Glucose NEGATIVE (NEG); Urine Protein NEGATIVE (NEG); Urine Specific Gravity 1.015 (1.005-1.030)
[2018-03-17] MEDS: ENOXAPARIN 80 MG/0.8 ML SQ SCH (20:46)
[2018-03-17 22:21] VITALS: BMI 36.6
[2018-03-18 07:26] LABS: Absolute Lymphocytes (CBC) 1.3 K/uL (0.7-4.9); Absolute Monocytes 0.5 K/uL (0.1-1.3); Absolute Neutrophil 2.4 K/uL (1.8-8.0); Basophils % 0.6 % (0-1.3); Eosinophils % 4.3 % (0-4.4); Hematocrit 33.5 % (36.0-45.0); Lymphocytes % 30.3 % (15.3-44.8); MCH 30.1 pg (27.0-35.0); MCV 89.2 fL (80-100); MPV 8.3 fL (7.6-11.3); Monocytes % 10.3 % (3.3-12.3); RBC Red Blood Cell Count 3.76 M/uL (3.86-4.86)
--- NOTE | 2018-03-18 07:41 | EKG ---
Test Date: 2018-03-17 Test Time: 15:39:29 Creative Developer: MARISEL MEASUREMENT RESULTS: Intervals: Rate: 88 VA: 146 QRSD: 136 QT: 422 QTc: 510 [place]: P: 20 VA: 146 QRS: 62 T: 24 INTERPRETIVE STATEMENTS: Normal sinus rhythm Right bundle branch block Abnormal ECG Compared to ECG 12/22/2014 18:39:22 Right bundle-branch block now present Electronically Signed On 03-18-18 07:39:06 [employer]PERVISOR [employer] by Carlitos Price
[2018-03-18 07:56] LABS: Albumin 3.3 g/dL (3.4-5.0); Bilirubin Total 0.3 mg/dL (0.2-1.0); Potassium 4.6 mmol/L (3.5-5.1); Protein, Total 7.1 g/dL (6.4-8.2)
[2018-03-18 08:44] VITALS: O2SAT 97
--- NOTE | 2018-03-18 09:20 | RAD REPORT ---
EXAM DESCRIPTION: NM - Vent Perfusion VQ Scan - 03/18/2018 6:18 am CLINICAL HISTORY: Shortness of breath COMPARISON: March 17, 2018 TECHNIQUE: 13.2 Mci [id number] was administered by inhalation. First breath, equilibrium, and washout images of the lungs obtained 7.7 millicuries Technetium-99 MAA was administered intravenously. Anterior, posterior, lateral and ob lique views of the lungs were taken. FINDINGS: The lungs demonstrate relatively homogeneous radiotracer activity on ventilation and perfu renuka sequences. No mismatched segmental or lobar perfusion defects are seen. IMPRESSION: No evidence of a pulmonary embolus
[2018-03-18] MEDS: ENOXAPARIN 80 MG/0.8 ML SQ SCH (10:13)
[2018-03-18 13:33] VITALS: BP 122/60; TEMP 97.7
[2018-03-18] MEDS ORDERED: CYCLOBENZAPRINE 10 MG TAB PO SCH (14:00)
[2018-03-18] MEDS ORDERED: GABAPENTIN 300 MG CAP PO SCH (14:00)
--- NOTE | 2018-03-18 14:15 | P.HP ---
Certification for Inpatient Patient admitted to: Observation With expected LOS: <2 Midnights Patient will require the following post-hospital care: None Practitioner: I am a practitioner with admitting privileges, knowledge of patient current condition, hospital course, and medical plan of care. Services: Services provided to patient in accordance with Admission requirements found in Title 42 Section 412.3 of the Code of Federal Regulations Patient History Date of Service: 03/17/18 Reason for admission: Shortness of breath History of Present Illness: Patient is a 62-year-old female who came to the hospital with shortness of breath. Patient states she has been short of breath for quite a while. Her she was diagnosed with pulmonary nodules tendons were not malignant. She has had biopsies performed and [facility] Since her workup was negative she was sent to the visual merchandising assistant. . Initial testing was unremarkable but she does not know if she had pulmonary function testing. She was admitted to the hospital for possible pulmonary embolism. 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 He could have histoplasmosis or some other etiology as making words shortness of breath worse. She will probably need a bronchoscopy for further workup. Allergies No Known Drug Allergies Allergy (Verified 03/17/18 23:19) Unknown Home Medications: Allopurinol [Zyloprim*] 300 mg PO DAILY 03/17/18 Amitriptyline [Elavil*] 10 mg PO BEDTIME 03/17/18 Cyclobenzaprine [Flexeril*] 5 mg PO TID 03/17/18 Gabapentin 300 mg PO TID 03/17/18 Hydroxychloroquine [Plaquenil*] 200 mg PO DAILY 03/17/18 Hydroxyzine HCl [Atarax] 25 mg PO DAILY 03/17/18 Morphine *Extended Release* [MS Contin*] 15 mg PO BID 03/17/18 Quetiapine [Seroquel*] 100 mg PO BID 03/17/18 Sertraline [Zoloft*] 100 mg PO DAILY 03/17/18 Simvastatin 40 mg PO BEDTIME 03/17/18 Venlafaxine HCl *Xr* [Effexor XR] 100 mg PO BID 03/17/18 - Past Medical/Surgical History Has patient received pneumonia vaccine in the past: Yes Diabetic: No -: ASTHMA -: HTN -: DEPRESSION -: LUNG DX -: BACK FUSION - Family History Father Family History: Reviewed- Non-Contributory - Social History Smoking Status: Never smoker Alcohol use: No CD- Drugs: No Caffeine use: Yes Place of Residence: Home Review of Systems 10-point ROS is otherwise unremarkable Physical Examination - Vital Signs Temperature: 97.7 F Blood Pressure: 122/60 Pulse: 79 Respirations: 16 Pulse Ox (%): 92 - Physical Exam General: Alert, In no apparent distress, Oriented x3 HEENT: Atraumatic, PERRLA, Mucous membr. moist/pink, EOMI, Sclerae nonicteric Neck: Supple, 2+ carotid pulse no bruit, No LAD, Without JVD or thyroid abnormality Respiratory: Clear to auscultation bilaterally, Normal air movement Cardiovascular: Regular rate/rhythm, Normal S1 S2, No murmurs Gastrointestinal: Normal bowel sounds, Soft and benign, Non-distended, No tenderness, No rebound, No guarding Musculoskeletal: No clubbing, No swelling, No tenderness Integumentary: No rashes Neurological: Normal gait, Normal speech, Normal strength at 5/5 x4 extr, Normal tone, Sensation intact, Cranial nerves 3-12 intact, Normal affect Lymphatics: No axilla or inguinal lymphadenopathy - Studies Laboratory Data (last 24 hrs) 03/17/18 15:22: PT 12.7 H, INR 1.08 03/17/18 15:22: WBC 5.6, Hgb 12.0, Hct 36.0, Plt Count 419 H 03/17/18 15:22: Sodium 141, Potassium 3.6, BUN 19 H, Creatinine 1.20, Glucose 90 , Magnesium 2.3, Total Bilirubin 0.3, AST 27, ALT 34, Alkaline Phosphatase 89, Lipase 81 Microbiology Data (last 24 hrs): 03/17/18 15:39 Nasopharnyx Influenza Type A Antigen Screen - Final 03/17/18 15:39 Nasopharnyx Influenza Type B Antigen Screen - Final Assessment & Plan - Problems (Diagnosis) (1) Shortness of breath Status: Acute (2) Pulmonary nodules Status: Acute (3) Pleuritic chest pain Status: Acute (4) HTN (hypertension) Status: Acute (5) Asthenia Status: Acute (6) Previously employed in farming Status: Acute - Plan Plan: 1. V/Q scan 2. monitor hemodynamics 3. Supportive care 4. Pulmonary consultation for possib;e bronchoscopy(outpt vs. inpatient) 5. Monitor labs closely 6. GI/DVT prophylaxis Discharge Plan: Home Plan to discharge in: Greater than 2 days - Advance Directives Does patient have a Living Will: No Does patient have a Durable POA for Healthcare: No - Code Status/Comfort Care Code Status Assessed: Yes Code Status: Full Code Critical Care: No Time Spent Managing PTS Care (In Minutes): 45
[2018-03-18] MEDS ORDERED: QUETIAPINE 100MG TAB PO SCH (21:00)
[2018-03-18] MEDS ORDERED: ATORVASTATIN 20 MG TAB PO SCH (21:00)
[2018-03-18] MEDS ORDERED: AMITRIPTYLINE 10 MG TAB PO SCH (21:00)
[2018-03-18] MEDS ORDERED: MORPHINE *EXTENDED RELEASE* 15 MG TAB PO SCH (21:00)
[2018-03-18] MEDS ORDERED: VENLAFAXINE HCL XR 75 MG CAP PO SCH (21:00)
--- NOTE | 2018-03-18 21:07 | P.CNS ---
Date of Consult: 03/18/18 Reason for Consult: CKD III Requesting Physician: Johnna Gann Chief Complaint: Shortness of breath History of Present Illness: Patient is a 62-year-old female who came to the hospital with shortness of breath. Patient states she has been short of breath for quite a while. Her she was diagnosed with pulmonary nodules tendons were not malignant. She has had biopsies performed and [facility]. Since her workup was negative she was sent to the mixer lever operator. . Initial testing was unremarkable but she does not know if she had pulmonary function testing. She was admitted to the hospital for possible pulmonary embolism. 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 He could have histoplasmosis or some other etiology as making words shortness of breath worse. She will probably need a bronchoscopy for further workup. Allergies No Known Drug Allergies Allergy (Verified 03/17/18 23:19) Unknown Home medications list reviewed: Yes Home Medications: Allopurinol [Zyloprim*] 300 mg PO DAILY 03/17/18 Amitriptyline [Elavil*] 10 mg PO BEDTIME 03/17/18 Cyclobenzaprine [Flexeril*] 5 mg PO TID 03/17/18 Gabapentin 300 mg PO TID 03/17/18 Hydroxychloroquine [Plaquenil*] 200 mg PO DAILY 03/17/18 Hydroxyzine HCl [Atarax] 25 mg PO DAILY 03/17/18 Morphine *Extended Release* [MS Contin*] 15 mg PO BID 03/17/18 Quetiapine [Seroquel*] 100 mg PO BID 03/17/18 Sertraline [Zoloft*] 100 mg PO DAILY 03/17/18 Simvastatin 40 mg PO BEDTIME 03/17/18 Venlafaxine HCl *Xr* [Effexor XR] 100 mg PO BID 03/17/18 - Past Medical/Surgical History Diabetic: No -: ASTHMA -: HTN -: DEPRESSION -: LUNG DX -: BACK FUSION - Family History Father Family History: Reviewed- Non-Contributory - Social History Alcohol use: No CD- Drugs: No Caffeine use: Yes Place of Residence: Home Review of Systems 10-point ROS is otherwise unremarkable General: Weakness, Malaise Respiratory: SOB with Excertion Musculoskeletal: Back Pain Neurological: Weakness Physical Examination Temp Pulse Resp BP Pulse Ox 97.7 F 79 16 122/60 92 03/18/18 14:25 03/18/18 14:25 03/18/18 14:25 03/18/18 14:25 03/18/18 14:25 General: In no apparent distress, Oriented x3, Cooperative HEENT: Atraumatic Neck: Supple Respiratory: Clear to auscultation bilaterally, Normal air movement Cardiovascular: No edema, Regular rate/rhythm Gastrointestinal: Soft and benign, No guarding Musculoskeletal: No clubbing, No contractures, No warmth Integumentary: No rashes, No cyanosis Neurological: Normal speech Blood work reviewed in the chart. Hgb 11.3; Cr 1.2 Imagings Data: EXAM DESCRIPTION: CT - Chest Abd Pelvis Wo Con - 03/17/2018 3:02 pm CLINICAL HISTORY: Chest pain, abdominal pain COMPARISON: CT chest August 2017 TECHNIQUE: During dynamic enhancement using 100 milliliters nonionic IV contrast, axial 5 millimeter thick images of the chest, abdomen and pelvis were obtained. Biphasic technique was utilized through the abdomen. Oral contrast was administered. All CT scans are performed using dose optimization technique as appropriate and may include automated exposure control or mA/KV adjustment according to patient size. FINDINGS: Patient has multiple variably sized noncalcified pulmonary nodules. These are stable in size, number and morphology since August 21, 2017. Nodules were reported as being stable on the August study. No new mass. No pneumothorax or pleural effusion. No chest wall mass or abnormal axillary lymphadenopathy seen. Mediastinal and hilar regions show no mass or lymphadenopathy. No significant cardiac finding. No acute rib finding seen. Old rib trauma is noted and there are degenerative changes in the vertebrae. The liver, spleen and pancreas show no significant findings. Gallbladder and biliary tree are normal. No hydronephrosis or suspicious renal finding. Function cannot be assessed. Isodense masses and pyelonephritis cannot be excluded. No adrenal abnormalities. No urinary bladder abnormalities. No uterus or ovarian acute finding. Fibroid is seen in the fundus. Hyperdense 18 millimeter mass along the right side of the vaginal wall is probably a high protein content cyst. No adjacent inflammatory stranding. This is not likely of any clinical significance. Pelvic floor laxity is present. No dilated bowel loops or focal ball bowel wall thickening. No free air, free fluid or inflammatory stranding. No hernia, mass or bulky lymphadenopathy No significant bone or vascular finding. Postsurgical changes are present in the lumbar spine. IMPRESSION: CT chest study shows stable pulmonary nodules with no acute or suspicious chest finding. CT abdomen and pelvis imaging shows no acute findings. Conclusions/Impression: A/ CKD III. HTN with CKD. Anemia in chronic illness. Gout, controlled. P/ Continue current POC and Medications. Low sodium diet. Recommend PT/ Increased activity. No NSAIDs. AM labs. Daily weight.
--- NOTE | 2018-03-19 06:38 | DS ---
Date of Discharge: 03/18/2018 Discharge Diagnoses: 1.Shortness of breath. 2.Pleuritic chest pain. 3.Morbid obesity. 4.Chronic pain syndrome. 5.Pulmonary nodule, nonmalignant. Hospital Course: The patient is a 62-year-old female, who came into the hospital with pleuritic ches t pain and shortness of breath. Patient's symptoms occurred 3 days prior to admission. She also com plained of some left low back pain and had some point tenderness on her right shoulder. Patient had workup done to rule out PE. Lung V/Q scan was negative. Chest x-ray did not show any acute cardiopu lmonary process. CT scan of the chest, abdomen, and pelvis showed stable pulmonary nodules with no a cute or suspicious chest finding. CT abdomen and pelvis imaging shows no acute findings. Patient anaya s a history of these pulmonary nodules, has been evaluated by Dr. Anton at the [facility] h ere locally and has had biopsy done in [place], which did not show any malignancy. Patient does foll ow with lung doctor on a regular basis. Doppler of lower extremities was done. DVT was not found. Patient likely has symptoms relating to her chronic back pain. She does follow with Dr. Peter wolf h pain control. She takes multiple medications for neuropathic pain as well as narcotics. Patient w as then cleared for discharge. She can have echocardiogram done as an outpatient. She was doing wel l. Her pain had improved. She is likely having more musculoskeletal pain than anything. Followup: The patient encouraged to follow up with her primary care physician in 2-3 days. Follow u p with chronic pain doctor, Dr. Green as scheduled. Return to ER for worsening condition. Activity: No driving or operating while on narcotics. Diet: Heart healthy, calorie restricted diet. Medications: As per medication reconciliation list. Physical Examination: General: Awake, alert, oriented, no acute distress. Obese female. Cardiovascular: S1, S2. No murmurs. Respiratory: Moving air well bilaterally. No wheezing. Gastrointestinal: Abdomen is soft, nontender, nondistended. Positive bowel sounds. Extremities: No clubbing, cyanosis, edema. Neurologic: Nonfocal. Musculoskeletal: Point tenderness on the right scapula. SA/MODL Voice ID: [id number] Report ID: [id number]
[2018-03-19] MEDS ORDERED: HYDROXYCHLOROQUINE 200MG TAB PO SCH (09:00)
[2018-03-19] MEDS ORDERED: SERTRALINE HCL 100 MG TAB PO SCH (09:00)
[2018-03-19] MEDS ORDERED: ALLOPURINOL 300 MG TAB PO SCH (09:00)
[2018-03-19] MEDS ORDERED: hydrOXYzine HCl 25 MG TAB PO SCH (09:00)
== END 2018-03-18 12:10 | disposition home or self-care (01) ==
LOC: ER 12:59 → ERHOLD 16:20 → 2ND 20:09
PROVIDERS: ADMIT Family Medicine; ATTEND Hospitalist
DX: R06.02 Shortness of breath (principal); R07.9 Chest pain, unspecified; E66.01 Morbid (severe) obesity due to excess calories; Z68.36 Body mass index [BMI] 36.0-36.9, adult; G89.4 Chronic pain syndrome; R91.8 Other nonspecific abnormal finding of lung field; I12.9 Hypertensive chronic kidney disease with stage 1 through stage 4 chronic kidney disease, or unspecified chronic kidney disease; N18.3 Chronic kidney disease, stage 3 (moderate); R53.1 Weakness
CPT/HCPCS: 36415; 71045; 71250; 74176; 78582; 80048; 80053; 80076; 81003; 83690; 83735; 83880; 84484; 85025 ×2; 85379; 85610; 87088; 87804 ×2; 93005; 93970; 94760 ×2; 96361; 96365; 96366; 96367; 96372; 96375; 99285; A9540; A9558; G0378 ×2; J0456; J0696; J1650 ×2; J2405; J3010; J7030; 87086

== ENCOUNTER 2018-09-21 11:22 | Emergency (ER) | payer OTHER ==
--- OUTSIDE RECORDS SUMMARY | 2018-09-21 11:26 | XMS REPORT | Clinical Summary ---
:1955 Author Organization [facility] Address [address] [place] [address] Care Team Providers Name Role Phone Asked, No Pcp Primary Care Provider Unavailable Allergies No Known Allergies Medications Medication Sig Dispensed Refills Start Date End Date Status venlafaxine 225 MG 0 02/14/2017 Active tablet extended release 24hr 24 hr tablet gabapentin (NEURONTIN) 0 02/27/2017 Active 300 mg capsule morPHINE (MSIR) 15 MG TK 1 T PO BID 0 02/27/2017 Active tablet QUEtiapine (SEROquel) 0 02/13/2017 Active 100 MG tablet sertraline (ZOLOFT) 100 0 02/22/2017 Active MG tablet hydroxychloroquine Take by mouth 0 Active (PLAQUENIL) 200 mg daily. tablet amitriptyline (ELAVIL) Take 10 mg by 0 Active 10 MG tablet mouth nightly. allopurinol (ZYLOPRIM) Take 300 mg 0 Active 300 MG tablet by mouth daily. simvastatin (ZOCOR) 40 Take 40 mg by 0 Active MG tablet mouth nightly. alendronate (FOSAMAX) TK 1 T PO 0 01/12/2017 11/02/19 Discontinued 70 MG tablet ONCE A WEEK 18 amitriptyline (ELAVIL) 0 02/27/2017 10/09/19 Discontinued 10 MG tablet 18 atenolol (TENORMIN) 25 0 12/29/2016 11/02/19 Discontinued MG tablet 18 cyclobenzaprine 0 02/27/2017 11/02/19 Discontinued (FLEXERIL) 5 mg tablet 18 enalapril (VASOTEC) 5 TK 1 T PO D 1 12/05/2016 10/09/19 Discontinued MG tablet 18 traMADol (ULTRAM) 50 mg Take 1 tablet 20 tablet 0 09/26/2017 10/04/19 tablet (50 mg total) 18 by mouth every 6 (six) hours as needed for moderate pain or severe pain for up to 7 days. acetaminophen (TYLENOL Take 1 tablet 21 tablet 0 09/26/2017 10/04/19 EXTRA STRENGTH) 500 MG (500 mg 18 tablet total) by mouth every 8 (eight) hours for 7 days. cyanocobalamin 1,000 Inject into 0 03/07/2011 11/02/19 Discontinued mcg/mL injection the shoulder, 18 thigh, or buttocks. Active Problems Problem Noted Date Lung nodule 04/09/2017 Encounters Date Type Specialty Care Team Description 11/06/2017 Telephone Cardiothoracic Breana, Surgery [place], [place] 11/01/2017 Office Visit Cardiothoracic Amado Caldera Surgery follow-up Surgery MD Aba examination (Primary Dx) 10/12/2017 Telephone Cardiothoracic Breana, Surgery Rebecca, [place] 10/12/2017 Telephone Cardiothoracic Breana, Surgery Rebecca, [place] 10/12/2017 Telephone Cardiothoracic Breana, Surgery Rebecca, [place] 10/11/2017 Telephone Cardiothoracic Breana, Surgery Rebecca, [place] 10/10/2017 Orders Only Cardiothoracic Breana, Lung nodule (Primary Surgery Rebecca, [place] Dx) 10/08/2017 Office Visit Cardiothoracic Jamal, Visit for wound Surgery Sheri Pfeiffer NP check (Primary Dx) 09/26/2017 Patient Outreach Quality Rai Mary Dolores 09/25/2017 Surgery Cardiothoracic Amado Caldera ROBOTIC ASSISTED Surgery MD Aba THORACOSCOPIC THERAPEUTIC LEFT LUNG WEDGE RESECTION, 09/25/2017 Anesthesia Event Cardiothoracic Jacqueline Snow Surgery 09/25/2017 - Hospital Encounter Cardiovascular Amado Caldera Lung nodule 09/26/2017 MD Aba 09/24/2017 Telephone Cardiothoracic Jamal, Surgery Sheri Pfeiffer NP after 09/20/2017 Immunizations Name Dates Previously Given Next Due [...] Health Maintenance Due Date Last Done Comments BREAST CANCER SCREENING 07/20/2003 COLON CANCER SCREENING 07/20/2003 SHINGLES VACCINES (#1) 07/20/2003 65+ PNEUMOCOCCAL VACCINE (1 of 2 - PCV13) 2018 INFLUENZA VACCINE 11/14/2018 04/25/2017 Procedures Procedure Name Priority Date/Time Associated [...] AM Staff: Resident/MAGDALENA/AA: FREDRICK VIRAMONTES Performed by: Resident/MAGDALENA/AA Pre-procedure: patient identified, IV checked, site and [...] the procedure well with no immediate complications OH AN ELECTIVE ENDOTRACHEAL AIRWAY Routine 09/25/2017 8:54 AM CDT Procedure Note - Fredrick Viramontes CRNA - 09/25/2017 8:54 AM CDT Airway Date/Time: 09/25/2017 8:12 AM Performed by: FREDRICK VIRAMONTES Authorized by: REMY BRYANT JR. Location: OR Urgency: Elective Anesthesiologist: REMY BRYANT JR. Resident/PASSENGER INTERLINE CLERK/AA: FREDRICK VIRAMONTES Performed by: /MAGDALENA/AA Preoxygenated with 100% O2: Yes C-spine Precautions [...] ARTERIAL BLOOD GAS, STAT 09/25/2017 8:54 AM CDT Results for this procedure CORRECTED are in the results section. POTASSIUM, SYRINGE STAT 09/25/2017 8:54 AM CDT SODIUM LEVEL, SYRINGE STAT 09/25/2017 8:54 AM CDT HEMOGLOBIN, SYRINGE STAT 09/25/2017 8:54 AM CDT IONIZED CALCIUM, ARTERIAL STAT 09/25/2017 8:54 AM CDT GLUCOSE LEVEL, SYRINGE STAT 09/25/2017 8:54 AM CDT SODIUM LEVEL, SYRINGE STAT 09/25/2017 7:30 AM CDT HEMOGLOBIN, SYRINGE STAT 09/25/2017 7:30 AM CDT POTASSIUM, SYRINGE STAT 09/25/2017 7:30 AM CDT GLUCOSE LEVEL, SYRINGE STAT 09/25/2017 7:30 AM CDT PREPARE RBC STAT 09/25/2017 7:17 AM CDT TYPE AND SCREEN STAT 09/25/2017 7:17 AM CDT ECG 12-LEAD STAT 09/25/2017 5:48 AM CDT after 09/20/2017 Results XR Chest 1 Vw Portable (09/26/2017 2:09 PM CDT)Only the most recent of3 resultswithin the time period is included. Specimen Narrative Performed At EXAMINATION:XR CHEST 1 VW PORTABLE [facility] CLINICAL HISTORY:CT removal COMPARISON:09/26/2017 0631 hours IMPRESSION: Interval removal left-sided chest tube. No pneumothorax. No infiltrate congestion or effusion. Moderate cardiomegaly unchanged. Visualized skeleton intact [id number] Procedure Note Interface, Radiology Results Incoming - 09/26/2017 2:14 PM CDT EXAMINATION: XR CHEST 1 VW PORTABLE CLINICAL HISTORY: CT removal COMPARISON: 09/26/2017 0631 hours IMPRESSION: Interval removal left-sided chest tube. No pneumothorax. No infiltrate congestion or effusion. Moderate cardiomegaly unchanged. Visualized skeleton intact [id number] Performing Organization Address [facility]/Zipcode Phone Number [facility] [address] [place] [phone] POC glucose (09/26/2017 11:44 AM CDT)Only the most recent of4 resultswithin the time period is included. [facility] POC glucose 123 (H) 65 - 99 mg/dL [facility] DEPARTMENT OF Comment: PATHOLOGY AND No Action Needed GENOMIC MEDICINE [facility] Notified RN Meter ID: [id number] Redevelopment Manager: Reji Cary Specimen Performing Organization Address [facility] Phone Number [facility] DEPARTMENT OF PATHOLOGY AND [address] [place] [phone] [employer] MEDICINE Estimated GFR (09/26/2017 8:30 AM CDT)Only the most recent of2 resultswithin the time period is included. [facility] GFR Non Af Amer 41 (A) mL/min/1.73 [facility] DEPART[facility] OF m2 PATHOLOGY AND GENOMIC MEDICINE GFR Af Amer 50 (A) mL/min/1.73 [facility] DEPART[facility] OF Comment: m2 PATHOLOGY AND Chronic kidney disease: <60 mL/min/1.73m2 GENOMIC MEDICINE Kidney failure: <15 mL/min/1.73m2 The estimated [...] Plasma specimen Performing Organization Address [facility] Phone Number [facility] DEPARTMENT OF PATHOLOGY AND [address] [place] [phone] GENOMIC MEDICINE Phosphorus level (09/26/2017 8:30 AM CDT) Phosphorus 2.7 2.4 - 4.5 mg/dL [facility] DEPARTMENT OF PATHOLOGY AND GENOMIC MEDICINE Specimen Plasma specimen Performing Organization Address City/[facility] Phone Number [facility] DEPARTMENT OF PATHOLOGY AND [address] [place] [phone] [place] [address] MEDICINE Magnesium level (09/26/2017 8:30 AM CDT) Magnesium 2.5 (H) 1.6 - 2.4 mg/dL [facility] DEPARTMENT OF PATHOLOGY AND GENOMIC MEDICINE Specimen Plasma specimen Performing Organization Address City/[facility] Phone Number [facility] DEPARTMENT OF PATHOLOGY AND [address] [place] [address] MEDICINE Basic metabolic panel (09/26/2017 8:30 AM CDT)Only the most recent of2 resultswithin the time period is included. Sodium 143 135 - 148 mEq/L [facility] DEPARTMENT OF PATHOLOGY AND GENOMIC MEDICINE Potassium 5.3 (H) 3.5 - 5.0 mEq/L [facility] DEPARTMENT OF PATHOLOGY AND GENOMIC MEDICINE Chloride 107 98 - 112 mEq/L [facility] DEPARTMENT OF PATHOLOGY AND GENOMIC MEDICINE CO2 24 24 - 31 mEq/L [facility] DEPARTMENT OF PATHOLOGY AND GENOMIC MEDICINE Anion gap 12@ANIO 7 - 15 mEq/L [facility] DEPARTMENT OF PATHOLOGY AND GENOMIC MEDICINE BUN 22 8 - 23 mg/dL [facility] DEPARTMENT OF PATHOLOGY AND GENOMIC MEDICINE Creatinine 1.3 (H) 0.5 - 0.9 mg/dL [facility] DEPARTMENT OF PATHOLOGY AND GENOMIC MEDICINE Glucose 119 (H) 65 - 99 mg/dL [facility] DEPARTMENT OF PATHOLOGY AND GENOMIC MEDICINE Calcium 8.9 8.8 - 10.2 mg/dL [facility] DEPARTMENT OF PATHOLOGY AND GENOMIC MEDICINE Specimen Plasma specimen Performing Organization Address City/[facility] Phone Number [facility] DEPARTMENT OF PATHOLOGY AND [address] [place] [address] MEDICINE CBC with platelet and differential (09/26/2017 8:11 AM CDT)Only the most recent of2 resultswithin the time period is included. WBC 10.85 4.50 - 11.00 [facility] DEPARTMENT OF k/uL PATHOLOGY AND GENOMIC MEDICINE RBC 3.16 (L) 4.20 - 5.50 [facility] DEPARTMENT OF m/uL PATHOLOGY AND GENOMIC MEDICINE HGB 9.5 (L) 12.0 - 16.0 [facility] DEPARTMENT OF g/dL PATHOLOGY AND GENOMIC MEDICINE HCT 30.1 (L) 37.0 - 47.0 % [facility] DEPARTMENT OF PATHOLOGY AND GENOMIC MEDICINE MCV 95.3 82.0 - 100.0 [facility] DEPARTMENT OF fL PATHOLOGY AND GENOMIC MEDICINE MCH 30.1 27.0 - 34.0 [facility] DEPARTMENT OF PATHOLOGY AND GENOMIC MEDICINE MCHC 31.6 31.0 - 37.0 [facility] DEPARTMENT OF g/dL PATHOLOGY AND GENOMIC MEDICINE RDW - SD 50.7 37.0 - 55.0 [facility] DEPARTMENT OF CO PATHOLOGY AND GENOMIC MEDICINE MPV 10.9 8.8 - 13.2 fL [facility] DEPARTMENT OF PATHOLOGY AND GENOMIC MEDICINE Platelet count 401 (H) 150 - 400 [facility] DEPARTMENT OF k/uL PATHOLOGY AND GENOMIC MEDICINE Nucleated RBC 0.00 /100 WBC [facility] DEPARTMENT OF PATHOLOGY AND GENOMIC MEDICINE Neutrophils 81.2 (H) 39.0 - 69.0 % [facility] DEPARTMENT OF PATHOLOGY AND GENOMIC MEDICINE Lymphocytes 10.5 (L) 25.0 - 45.0 % [facility] DEPARTMENT OF PATHOLOGY AND GENOMIC MEDICINE Monocytes 7.9 0.0 - 10.0 % [facility] DEPARTMENT OF PATHOLOGY AND GENOMIC MEDICINE Eosinophils 0.0 0.0 - 5.0 % [facility] DEPARTMENT OF PATHOLOGY AND GENOMIC MEDICINE Basophils 0.1 0.0 - 1.0 % [facility] DEPARTMENT OF PATHOLOGY AND GENOMIC MEDICINE Immature granulocytes 0.3Comment: 0.0 - 1.0 % [facility] DEPARTMENT OF "Immature PATHOLOGY AND granulocytes" GENOMIC MEDICINE (promyelocytes , myelocytes, metamyelocytes ) Specimen Performing Organization Address City/[facility]/Zipcode Phone Number [facility] DEPARTMENT OF PATHOLOGY AND [address] [place] [phone] GENOMIC MEDICINE Surgical pathology request (09/25/2017 4:04 PM CDT) [facility] DEPARTMENT OF PATHOLOGY AND GENOMIC MEDICINE Surgical pathology See link below [facility] DE[facility] OF report for PDF Lab PATHOLOGY AND Report GENOMIC MEDICINE Result status This is Final [facility] DEPART[facility] OF Report to PATHOLOGY AND [id number] GENOMIC MEDICINE Specimen Performing Organization Address City/[facility]/Zipcode Phone Number [facility] DEPARTMENT OF PATHOLOGY AND [address] [place] [phone] GENOMIC MEDICINE Fungus smear (09/25/2017 9:50 AM CDT) Fungus smear No fungi observed. [facility] DEPARTMENT OF Comment: PATHOLOGY AND Specimen Information GENOMIC MEDICINE Specimen Source: Tissue Specimen Site: Left lower lung wedge resection site 1 Specimen Tissue Performing Organization Address City/State/Zipcode Phone Number [facility] DEPARTMENT OF PATHOLOGY AND [address] [place] [address] GENOMIC MEDICINE Flow cytometry evaluation (09/25/2017 9:50 AM CDT) [facility] DEPARTMENT OF PATHOLOGY AND GENOMIC MEDICINE Flow cytometry See link below [facility] DEPART[facility] OF evaluation for PDF Lab PATHOLOGY AND Report GENOMIC MEDICINE Specimen Tissue - Other- Detailed Description Required Performing Organization Address City/State/Zipcode Phone Number [facility] DEPARTMENT OF PATHOLOGY AND [address] [place] [address] MEDICINE AFB culture (09/25/2017 9:50 AM CDT) AFB culture No growth after 6 weeks of incubation. [facility] DEPARTMENT OF isolate Comment: PATHOLOGY AND Specimen Information [facility] MEDICINE Specimen Source: Tissue Specimen Site: Left lower lung wedge resection site 1 Specimen Tissue - Other- Detailed Description Required Performing Organization Address City/State/Zipcode Phone Number [facility] DEPARTMENT OF PATHOLOGY AND [address] [place] [address] GENOMIC MEDICINE Tissue culture (09/25/2017 9:50 AM CDT) Tissue culture No growth after 3 days. [facility] DEPARTMENT OF isolate Comment: PATHOLOGY AND Specimen Information GENOMIC MEDICINE Specimen Source: Tissue Specimen Site: Left lower lung wedge resection site 1 Specimen Tissue - Other- Detailed Description Required Performing Organization Address City/[facility]/Zipcode Phone Number [facility] DEPARTMENT OF PATHOLOGY AND [address] [place] [address] MEDICINE Gram stain (09/25/2017 9:50 AM CDT) Gram stain isolate Occasional WBC's [facility] DEPARTMENT OF No organisms seen PATHOLOGY AND GENOMIC MEDICINE Comment: Specimen Information Specimen Source: Tissue Specimen Site: Left lower lung wedge resection site 1 Specimen Tissue Performing Organization Address City/State/Zipcode Phone Number [facility] DEPARTMENT OF PATHOLOGY AND [address] [place] [address] GENOMIC MEDICINE AFB stain (09/25/2017 9:50 AM CDT) AFB stain No acid fast bacilli (AFB) seen. [facility] DEPARTMENT OF Comment: PATHOLOGY AND GENOMIC Specimen Information MEDICINE Specimen Source: Tissue Specimen Site: Left lower lung wedge resection site 1 Specimen Tissue Performing Organization Address City/[facility] Phone Number [facility] DEPARTMENT OF PATHOLOGY AND [address] [place] [address] GENOMIC MEDICINE Fungus culture (09/25/2017 9:50 AM CDT) Fungus culture No growth after 4 weeks of incubation. [facility] DEPARTMENT OF isolate Comment: PATHOLOGY AND Specimen Information GENOMIC MEDICINE Specimen Source: Tissue Specimen Site: Left lower lung wedge resection site 1 Specimen Tissue Performing Organization Address City/[facility] Phone Number [facility] DEPARTMENT OF PATHOLOGY AND [address] [place] [address] GENOMIC MEDICINE Anaerobic culture (09/25/2017 9:50 AM CDT) Anaerobic culture No anaerobic organisms isolated. [facility] DEPARTMENT OF isolate Comment: PATHOLOGY AND Specimen Information GENOMIC MEDICINE Specimen Source: Tissue Specimen Site: Left lower lung wedge resection site 1 Specimen Tissue Performing Organization Address [facility] Phone Number [facility] DEPARTMENT OF PATHOLOGY AND [address] [place] [address] GENOMIC MEDICINE Sodium level, syringe (09/25/2017 9:31 AM CDT)Only the most recent of3 resultswithin the time period is included. Sodium, syringe 138 135 - 148 mEq/L [facility] DEPARTMENT OF PATHOLOGY AND GENOMIC MEDICINE Specimen Blood Performing Organization Address [facility] Phone Number [facility] DEPARTMENT OF PATHOLOGY AND [address] [place] [address] GENOMIC MEDICINE Potassium, syringe (09/25/2017 9:31 AM CDT)Only the most recent of3 resultswithin the time period is included. Potassium, syringe 4.1 3.5 - 5.0 mEq/L [facility] DEPARTMENT OF PATHOLOGY AND GENOMIC MEDICINE Specimen Blood Performing Organization Address [facility] Phone Number [facility] DEPARTMENT OF PATHOLOGY AND [address] [place] [address] MEDICINE Ionized calcium, arterial (09/25/2017 9:31 AM CDT)Only the most recent of2 resultswithin the time period is included. Ionized calcium, 1.05 (L) 1.11 - 1.32 [facility] DEPARTMENT OF arterial mmol/L PATHOLOGY AND GENOMIC MEDICINE Specimen Blood Performing Organization Address [facility] Phone Number [facility] DEPARTMENT OF PATHOLOGY AND [address] [place] [phone] [place] [address] MEDICINE Hemoglobin, syringe (09/25/2017 9:31 AM CDT)Only the most recent of3 resultswithin the time period is included. Hemoglobin, syringe 9.1 (L) 12.0 - 16.0 g/dL [facility] DEPARTMENT OF PATHOLOGY AND GENOMIC MEDICINE Specimen Blood Performing Organization Address City/[facility] Phone Number [facility] DEPARTMENT OF PATHOLOGY AND [address] [place] [phone] [place] [address] Glucose level, syringe (09/25/2017 9:31 AM CDT)Only the most recent of3 resultswithin the time period is included. Pathologist [facility] [place] Glucose, syringe 120 (H) 65 - 99 mg/dL [facility] DEPARTMENT OF PATHOLOGY AND GENOMIC MEDICINE Specimen Blood Performing Organization Address [facility] Phone Number [facility] DEPARTMENT PATHOLOGY AND [address] [place] [address] Arterial blood gas, corrected (09/25/2017 9:31 AM CDT)Only the most recent of2 resultswithin the time period is included. pH, arterial 7.38 7.35 - 7.45 [facility] DEPARTMENT OF PATHOLOGY AND GENOMIC MEDICINE pCO2, arterial 43 35 - 45 mmHg [facility] DEPARTMENT OF PATHOLOGY AND GENOMIC MEDICINE pO2, arterial 217 (H) 80 - 90 mmHg [facility] DEPARTMENT OF PATHOLOGY AND GENOMIC MEDICINE Temperature, Celsius 37.0 Degrees C [facility] DEPARTMENT OF PATHOLOGY AND GENOMIC MEDICINE O2 saturation, 99 95 - 100 % [facility] DEPARTMENT OF arterial PATHOLOGY AND GENOMIC MEDICINE pH, arterial 7.38 [facility] DEPARTMENT OF corrected PATHOLOGY AND GENOMIC MEDICINE pCO2, arterial 43 mmHg [facility] DEPARTMENT OF corrected PATHOLOGY AND GENOMIC MEDICINE pO2, arterial 217 mmHg [facility] DEPARTMENT OF corrected PATHOLOGY AND GENOMIC MEDICINE Base excess, arterial 0 -2 - 2 mEq/L [facility] DEPARTMENT OF PATHOLOGY AND GENOMIC MEDICINE Specimen Blood Performing Organization Address [facility] Phone Number [facility] DEPARTMENT OF PATHOLOGY AND [address] [place] [phone] [employer] [facility] Prepare RBC (09/25/2017 7:17 AM CDT) [facility] Product name Apheresis Red Cell [facility] DEPARTMENT OF AS3 #2 LR PATHOLOGY AND GENOMIC MEDICINE Unit number [id number] [facility] DEPARTMENT OF PATHOLOGY AND GENOMIC MEDICINE Product code [id number] [facility] DEPARTMENT OF PATHOLOGY AND GENOMIC MEDICINE Dispense status Returned to BB not [facility] DE[facility] OF transfused PATHOLOGY AND GENOMIC MEDICINE Blood expiration [id number] [facility] DE[facility] OF date PATHOLOGY AND GENOMIC MEDICINE Blood type code 5100 [facility] DEPARTMENT OF PATHOLOGY AND GENOMIC MEDICINE Blood type O POSITIVE [facility] DEPARTMENT OF PATHOLOGY AND GENOMIC MEDICINE Product name Red Blood Cells [facility] DEPARTMENT OF -1, Leukored PATHOLOGY AND GENOMIC MEDICINE Unit number [id number] [facility] DEPARTMENT OF PATHOLOGY AND GENOMIC MEDICINE Product code [id number] [facility] DEPARTMENT OF PATHOLOGY AND GENOMIC MEDICINE Dispense status Returned to BB not [facility] DEPARTMENT OF transfused PATHOLOGY AND GENOMIC MEDICINE Blood expiration [id number] [facility] DEPARTMENT OF date PATHOLOGY AND GENOMIC MEDICINE Blood type code 5100 [facility] DEPARTMENT OF PATHOLOGY AND GENOMIC MEDICINE Blood type O POSITIVE [facility] DEPARTMENT OF PATHOLOGY AND GENOMIC MEDICINE Specimen Performing Organization Address City/[facility] Phone Number [facility] DEPARTMENT OF PATHOLOGY AND [address] [place] [address] GENOMIC MEDICINE Type and screen (09/25/2017 7:17 AM CDT) ABO grouping O [facility] DEPARTMENT OF PATHOLOGY AND GENOMIC MEDICINE Rh type POS [facility] DEPARTMENT OF PATHOLOGY AND GENOMIC MEDICINE Antibody screen (gel) NEG [facility] DEPARTMENT OF PATHOLOGY AND GENOMIC MEDICINE Specimen Blood Performing Organization Address [facility] Phone Number [facility] DEPARTMENT OF PATHOLOGY AND [address] [place] [address] MEDICINE ECG 12 lead (09/25/2017 5:48 AM CDT) Ventricular rate 70 [facility] Atrial rate 70 [facility] [place] interval 140 [facility] QRSD interval 140 [facility] QT interval 424 [facility] QTC interval 457 [facility] P axis 1 9 [facility] QRS axis 1 70 [facility] T wave axis 29 [facility] EKG impression Normal sinus [facility] rhythm-Right bundle branch block-Abnormal ECG-In automated comparison with ECG of 28-MAR-2017 06:46,-No significant change was found- Specimen Performing Organization Address City/[facility] Phone Number [facility] [address] [place] [phone] after 09/20/2017 Insurance Payer Benefit Plan / Subscriber ID Effective Dates Phone Address Type Group MEDICARE MEDICARE PART A xxxxxxxxxx 2003-Present [place], [place] Medicare AND B Advance Directives Patient has advance care planning documents on file. For more information, please contact:Maurice [id number] [place] [address]
[2018-09-21] MEDS ORDERED: FENTANYL CITR 100 MCG/2 ML ONE (12:19)
[2018-09-21 12:38] LABS: Potassium 4.1 mmol/L (3.5-5.1)
[2018-09-21 12:59] LABS: Absolute Monocytes 0.4 K/uL (0.1-1.3); Absolute Neutrophil 4.8 K/uL (1.8-8.0); Basophils % 0.3 % (0-1.3); Eosinophils % 1.6 % (0-4.4); Hematocrit 35.7 % (36.0-45.0); Lymphocytes % 16.1 % (15.3-44.8); MPV 8.5 fL (7.6-11.3); Monocytes % 5.8 % (3.3-12.3); RBC Red Blood Cell Count 3.99 M/uL (3.86-4.86)
--- NOTE | 2018-09-21 13:02 | RAD REPORT ---
EXAM DESCRIPTION: CT - Head C Spine Mpr Wo Con - 09/21/2018 12:46 pm CLINICAL HISTORY: Head and neck injury status post fall. Head and neck pain COMPARISON: None. TECHNIQUE: Computed axial tomography of the head and cervical spine was obtained. Sagittal and coronal reconstruction was performed. All CT scans are performed using dose optimization technique as appropriate and may include automated exposure control or mA/KV adjustment according to patient size. FINDINGS: An intracranial bleed is not seen. The ventricles are normal in caliber. An extra-axial fl uid collection is not noted.Fluid within the visualized sinuses and mastoids is not seen A cervical fracture is not visualized. No dislocation is noted. 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 A cervical fracture is not visualized. If the patient continues to have symptoms to suggest intracra nial /spinal cord pathology then MRI would be recommended
--- NOTE | 2018-09-21 13:17 | RAD REPORT ---
EXAM DESCRIPTION: RAD - Pelvis - 09/21/2018 1:04 pm CLINICAL HISTORY: Pelvic pain status post injury FINDINGS: No fracture or dislocation is seen. Osteoporosis If the patient continues to have symptoms to suggest an occult fracture then MRI would be recommended
--- NOTE | 2018-09-21 13:18 | RAD REPORT ---
EXAM DESCRIPTION: RAD - Hip Left 2 View - 09/21/2018 1:13 pm CLINICAL HISTORY: Left hip pain status post injury FINDINGS: No fracture or dislocation is seen. Osteoporosis If the patient continues to have symptoms to suggest an occult fracture then MRI would be recommended
--- NOTE | 2018-09-21 13:20 | RAD REPORT ---
EXAM DESCRIPTION: RAD - Ribs Left - 09/21/2018 1:12 pm CLINICAL HISTORY: Left rib pain FINDINGS: Old left rib fractures. No acute fracture is seen. Osteoporosis
--- NOTE | 2018-09-21 13:21 | RAD REPORT ---
EXAM DESCRIPTION: Kayleigh Single View09/21/2018 1:12 pm CLINICAL HISTORY: Chest pain COMPARISON: March 2018 FINDINGS: The lungs appear clear of acute infiltrate. The heart is normal size IMPRESSION: No acute abnormalities displayed
--- NOTE | 2018-09-21 13:43 | ER ---
Nurse's Notes [facility] Name: Tarah Dennis Age: 63 yrs Sex: Female : 1955 Arrival Date: 09/21/2018 Time: 11:27 Bed 17 Private MD: None, None Diagnosis: Fall on same level from slipping, tripping and stumbling;Unspecified injury of face and head;Other chest pain-left lower ribs from fall;Pain in left hip Presentation: 09/21 11:29 Presenting complaint: Patient states: i fell afternoon and hit my forehead and tw2 landed on my left side, my back hurts and my forehead and my LEFT side of my ribs hurts as well, i think then i passed out a little bit because the last thing i knew i was sitting down on the floor. Transition of care: patient was not received from another setting of care. Onset of symptoms was September 21, 2018. Risk Assessment: Do you want to hurt yourself or someone else? Patient reports no desire to harm self or others. Initial Sepsis Screen: Does the patient meet any 2 criteria? No. Patient's initial sepsis screen is negative. Does the patient have a suspected source of infection? No. Patient's initial sepsis screen is negative. Care prior to arrival: None. 11:29 Method Of Arrival: Ambulatory tw2 11:29 Acuity: DELORES 4 tw2 Triage Assessment: 11:31 General: Appears in no apparent distress. obese, well groomed, Behavior is calm, tw2 cooperative, appropriate for age. Pain: Complains of pain in forehead, left ribs and back. Historical: - Allergies: 11:32 No Known Drug Allergies; tw2 - Home Meds: 11:32 Allopurinol 30 mg Oral 1 tab once daily [Active]; Breo Ellipta 200-25 mcg/dose tw2 inhalation dsdv 1 puff once daily [Active]; hydroxychloroquine 200 mg Oral tab 1 tab once daily [Active]; hydroxyzine HCl 25 mg Oral tab 1 tab 2 times per day [Active]; morphine 15 mg Oral TbER 1 tab every 12 hours [Active]; quetiapine 100 mg Oral tab 1 tab 2 times per day [Active]; sertraline 100 mg Oral tab 1 tab once daily [Active]; simvastatin 40 mg Oral tab 1 tab once daily [Active]; gabapentin 300 mg Oral cap 1 cap 3 times per day [Active]; amitriptyline 10 mg Oral tab 1 tab bedtime [Active]; venlafaxine 100 mg Oral tab 1 tab 2 times per day [Active]; - PMHx: 11:32 High Cholesterol; Hypertension; Asthma; tw2 - PSHx: 11:32 back fusion; tw2 - Immunization history:: Adult Immunizations. - Social history:: Smoking status: . - Ebola Screening: : Patient denies travel to an Ebola-affected area in the 21 days before illness onset. Screenin:36 Abuse screen: Denies threats or abuse. Nutritional screening: No deficits noted. tw2 Tuberculosis screening: No symptoms or risk factors identified. Fall Risk Secondary diagnosis (15 points) impaired mobility. Assessment: 11:45 General: Appears in no apparent distress. uncomfortable, Behavior is calm, cooperative, em Reports legs gave out and does not remember the incident. Pain: Complains of pain in forehead, back of neck, lumbar area, chest and pelvis. Neuro: Level of Consciousness is awake, alert, obeys commands, Oriented to person, place, time, situation. Cardiovascular: Capillary refill < 3 seconds Patient's skin is warm and dry. Respiratory: Reports shortness of breath pain with respiration since x 2 days ago Airway is patent Respiratory effort is even, unlabored, Respiratory pattern is regular, symmetrical, Breath sounds are clear bilaterally. GI: Abdomen is obese, Abd is soft X 4 quads Abdomen is tender to palpation in left upper quadrant and left lower quadrant. Derm: Skin is intact, is healthy with good turgor, Skin is pink, warm \T\ dry. Bruising that is that is light purple/light blue. Musculoskeletal: Swelling present in forehead. 12:00 General: The previous assessment is accurate, call light remains within reach. ss 13:12 Reassessment: pt in radiology dept. em 14:00 Reassessment: Patient appears in no apparent distress at this time. Patient and/or em family updated on plan of care and expected duration. Pain level reassessed. Patient is alert, oriented x 3, equal unlabored respirations, skin warm/dry/pink. Vital Signs: 11:31 BP 146 / 67; Pulse 84; Resp 17; Temp 97.9(TE); Pulse Ox 97% on R/A; Weight 90.72 kg tw2 (R); Height 5 ft. 4 in. (162.56 cm); Pain 9/10; 14:00 BP 137 / 71; Pulse 78; Resp 18; Pulse Ox 99% on R/A; em 11:31 Body Mass Index 34.33 (90.72 kg, 162.56 cm) tw2 ED Course: 11:27 Patient arrived in ED. dp 11:28 None, None is Private Physician. dp 11:31 Triage completed. tw2 11:31 Arm band placed on. tw2 11:33 Bed in low position. Call light in reach. Side rails up X2. Adult w/ patient. tw2 11:35 Ulises Pardo PA is PHCP. cp 11:35 Roland Bates MD is Attending Physician. cp 11:37 Darryl Taylor LVN is Primary Nurse. em 11:45 Rigid cervical collar applied and checked by physician. em 12:12 EKG done, by ED staff, reviewed by Ulises MCINTYRE. jb1 12:15 Initial lab(s) drawn, by mt, sent to lab. Inserted saline lock: 22 gauge in right em antecubital area, using aseptic technique. Blood collected. 12:46 CT completed. Patient tolerated procedure well. Patient moved to radiology. mw3 12:47 CT Head C Spine In Process Unspecified. EDMS 13:04 XRAY Chest (1 view) In Process Unspecified. EDMS 13:04 XRAY Ribs LEFT In Process Unspecified. EDMS 13:04 XRAY Pelvis In Process Unspecified. EDMS 13:04 Hip Left 2 View XRAY In Process Unspecified. EDMS 14:15 No provider procedures requiring assistance completed. IV discontinued, intact, em bleeding controlled, No redness/swelling at site. Pressure dressing applied. Administered Medications: 12:18 Drug: fentaNYL (PF) 25 mcg Route: IVP; Site: right antecubital; ss 14:00 Follow up: Response: No adverse reaction; Pain is decreased em Outcome: 13:43 Discharge ordered by . cp 14:14 Discharged to home via wheelchair, with family. em 14:14 Condition: good 14:14 Discharge instructions given to patient, family, Instructed on discharge instructions, follow up and referral plans. Demonstrated understanding of instructions, follow-up care. 14:16 Patient left the ED. em Signatures: Dispatcher [employer] EDThony Rosenbaum jb1 Darryl Taylor, EQUIPMENT OPERATOR WAREHOUSE EQUIPMENT OPERATOR WAREHOUSE Daphnie Huang, RN RN ss Ulises Pardo PA PA cp Wise, Tara, RN RN tw2 Aisha German mw3 Wilton Romero
--- NOTE | 2018-09-21 13:43 | EDPHYS ---
Physician Documentation [facility] Name: Tarah Dennis Age: 63 yrs Sex: Female : 1955 Arrival Date: 09/21/2018 Time: 11:27 Bed 17 Private MD: None, None ED Physician Roland Bates HPI: 09/21 11:59 This 63 yrs old Female presents to ER via Ambulatory with complaints of Fall cp Injury, Breathing Difficulty, Low Back Pain. 12:00 Details of fall: The patient fell from an upright position, while walking. cp 12:00 Onset: The symptoms/episode began/occurred 2 day(s) ago. Associated injuries: The cp patient sustained injury to the head, contusion, neck injury, pain, injury to the low back, pain, injury to the chest, specifically the left lower lateral rib area, left hip, painful injury. Severity of symptoms: in the emergency department the symptoms are unchanged, despite home interventions. Historical: - Allergies: 11:32 No Known Drug Allergies; tw2 - Home Meds: 11:32 Allopurinol 30 mg Oral 1 tab once daily [Active]; Breo Ellipta 200-25 mcg/dose tw2 inhalation dsdv 1 puff once daily [Active]; hydroxychloroquine 200 mg Oral tab 1 tab once daily [Active]; hydroxyzine HCl 25 mg Oral tab 1 tab 2 times per day [Active]; morphine 15 mg Oral TbER 1 tab every 12 hours [Active]; quetiapine 100 mg Oral tab 1 tab 2 times per day [Active]; sertraline 100 mg Oral tab 1 tab once daily [Active]; simvastatin 40 mg Oral tab 1 tab once daily [Active]; gabapentin 300 mg Oral cap 1 cap 3 times per day [Active]; amitriptyline 10 mg Oral tab 1 tab bedtime [Active]; venlafaxine 100 mg Oral tab 1 tab 2 times per day [Active]; - PMHx: 11:32 High Cholesterol; Hypertension; Asthma; tw2 - PSHx: 11:32 back fusion; tw2 - Immunization history:: Adult Immunizations. - Social history:: Smoking status: . - Ebola Screening: : Patient denies travel to an Ebola-affected area in the 21 days before illness onset. ROS: 12:05 Constitutional: Negative for body aches, chills, fever, poor PO intake. cp 12:05 Eyes: Negative for injury, pain, redness, and discharge. cp 12:05 Cardiovascular: Negative for chest pain, edema, palpitations. 12:05 Respiratory: Negative for cough, shortness of breath, wheezing. 12:05 Abdomen/GI: Negative for nausea, vomiting, and diarrhea, black/tarry stool, rectal bleeding. 12:05 Back: Positive for pain at rest, pain with movement. 12:05 : Negative for urinary symptoms. 12:05 MS/extremity: Positive for pain, of the left hip and left lower lateral rib area, Negative for decreased range of motion, deformity. 12:05 Neuro: Positive for headache, Negative for altered mental status, dizziness, numbness, syncope, weakness. 12:05 All other systems are negative. Exam: 12:15 ECG was reviewed by the Attending Physician. cp 12:15 Constitutional: The patient appears in no acute distress, alert, awake, cp non-diaphoretic, non-toxic, well developed, well nourished. 12:15 Head/Face: Normocephalic, atraumatic. cp 12:15 Eyes: Periorbital structures: appear normal, Pupils: equal, round, and reactive to light and accomodation, Extraocular movements: intact throughout, Conjunctiva: normal, no exudate, no injection, Sclera: no appreciated abnormality, Lids and lashes: appear normal, bilaterally. 12:15 ENT: External ear(s): are unremarkable, Ear canal(s): are normal, clear, TM's: bulging, is not appreciated, bilaterally, dullness, bilaterally, erythema, is not appreciated, bilaterally, Nose: is normal, Mouth: Lips: moist, Oral mucosa: pink and intact, moist, Posterior pharynx: is normal, airway is patent, no erythema, no exudate. 12:15 Neck: C-spine: C-collar placed in ED, vertebral tenderness, that is mild, appreciated at C5 and C6, crepitus, is not appreciated. 12:15 Chest/axilla: Inspection: normal, Palpation: crepitus, is not appreciated, tenderness, that is moderate, of the left lower lateral rib area. 12:15 Cardiovascular: Rate: normal, Rhythm: regular, Edema: is not appreciated, JVD: is not appreciated. 12:15 Respiratory: the patient does not display signs of respiratory distress, Respirations: normal, no use of accessory muscles, no retractions, no splinting, no tachypnea, labored breathing, is not present, Breath sounds: are clear throughout, no decreased breath sounds, no stridor, no wheezing. 12:15 Abdomen/GI: Inspection: abdomen appears normal, Bowel sounds: active, all quadrants, Palpation: soft, in all quadrants, moderate abdominal tenderness, in the posterior aspect of left lateral abdomen and anterior aspect of left lateral abdomen, rebound tenderness, is not appreciated, involuntary guarding, is not appreciated. 12:15 Back: pain, that is moderate, of the low back area and mid back area, vertebral tenderness, is not appreciated, Straight leg raises: of both lower extremities does not illicit pain. 12:15 Musculoskeletal/extremity: Exam is negative for decreased range of motion, deformity, Sensation intact. 12:15 Skin: no rash present. 12:15 Neuro: Orientation: to person, place \T\ time. Mentation: is normal, Cerebellar function: is grossly normal, Motor: is normal, Sensation: no obvious gross deficits. Vital Signs: 11:31 BP 146 / 67; Pulse 84; Resp 17; Temp 97.9(TE); Pulse Ox 97% on R/A; Weight 90.72 kg tw2 (R); Height 5 ft. 4 in. (162.56 cm); Pain 9/10; 14:00 BP 137 / 71; Pulse 78; Resp 18; Pulse Ox 99% on R/A; em 11:31 Body Mass Index 34.33 (90.72 kg, 162.56 cm) tw2 MDM: 11:41 Patient medically screened. cp 13:00 Differential diagnosis: closed head injury, contusion, fracture, multiple trauma. cp 13:43 Data reviewed: vital signs, nurses notes, lab test result(s), radiologic studies, CT cp scan, plain films. 13:43 Test interpretation: by ED physician or midlevel provider: plain radiologic studies. cp Counseling: I had a detailed discussion with the patient and/or guardian regarding: the historical points, exam findings, and any diagnostic results supporting the discharge/admit diagnosis, lab results, radiology results, to return to the emergency department if symptoms worsen or persist or if there are any questions or concerns that arise at home. Response to treatment: the patient's symptoms have markedly improved after treatment, and as a result, I will discharge patient. ED course: VSS. Radiology studies negative for acute trauma. Pain improved. Will discharge to home for continued monitoring. 09/21 11:57 Order name: Basic Metabolic Panel; Complete Time: 13:23 cp 08 13:23 Interpretation: Normal except: BUN 19; GFR 45. cp 09/21 11:57 Order name: CBC with Diff; Complete Time: 13:23 cp 09/21 13:24 Interpretation: Normal except: HGB 11.9; HCT 35.7; RDW 15.5; JAVIER% 76.2. cp 09/21 11:57 Order name: XRAY Chest (1 view); Complete Time: 13:23 cp 09/21 11:57 Order name: XRAY Ribs LEFT; Complete Time: 13:23 cp 09/21 11:57 Order name: Creatinine for Radiology; Complete Time: 13:23 cp 09/21 11:57 Order name: Type And Screen; Complete Time: 13:43 cp 09/21 11:57 Order name: XRAY Pelvis; Complete Time: 13:23 cp 09/21 11:57 Order name: Hip Left 2 View XRAY; Complete Time: 13:23 cp 09/21 11:57 Order name: C-Collar; Complete Time: 11:59 cp 09/21 11:57 Order name: CT Head C Spine; Complete Time: 13:23 cp 08 11:57 Order name: Labs collected and sent; Complete Time: 12:18 cp 09/21 11:57 Order name: EKG; Complete Time: 11:58 cp 09/21 11:57 Order name: EKG - Nurse/Tech; Complete Time: 12:12 cp EC:15 Rate is 75 beats/min. Rhythm is regular. [place] interval is normal. QRS interval is normal. cp QT interval is normal. Interpreted by me. Reviewed by me. Administered Medications: 12:18 Drug: fentaNYL (PF) 25 mcg Route: IVP; Site: right antecubital; ss 14:00 Follow up: Response: No adverse reaction; Pain is decreased em Disposition: 09/22 07:03 Co-signature as Attending Physician, Roland Bates MD. rn Disposition: 09/21/18 13:43 Discharged to Home. Impression: Fall on same level from slipping, tripping and stumbling, Unspecified injury of face and head, Other chest pain - left lower ribs from fall, Pain in left hip. - Condition is Stable. - Discharge Instructions: Rib Contusion, Head Injury, Adult, Fall Prevention in the Home, Musculoskeletal Pain, Hip Pain. - Medication Reconciliation Form, Thank You Letter, Antibiotic Education, Prescription Opioid Use form. - Follow up: Private Physician; When: 2 - 3 days; Reason: Recheck today's complaints. - Problem is new. - Symptoms have improved. Signatures: Dispatcher [employer] EDMS Brandon, Darryl, QUANTITATIVE RESEARCH ANALYST QUANTITATIVE RESEARCH ANALYST em Roland Bates MD MD rn Smirch, Shelby, RN RN Ulises Cobian PA PA cp Wise, Tara RN RN tw2 Corrections: (The following items were deleted from the chart) 09/21 13:46 13:43 09/21/2018 13:43 Discharged to Home. Impression: Fall on same level from cp slipping, tripping and stumbling. Condition is Stable. Forms are Medication Reconciliation Form, Thank You Letter, Antibiotic Education, Prescription Opioid Use. Follow up: Private Physician; When: 2 - 3 days; Reason: Recheck today's complaints. Problem is new. Symptoms have improved. cp 14:15 13:46 09/21/2018 13:43 Discharged to Home. Impression: Fall on same level from em slipping, tripping and stumbling; Unspecified injury of face and head; Other chest pain - left lower ribs from fall; Pain in left hip. Condition is Stable. Discharge Instructions: Rib Contusion, Head Injury, Adult, Fall Prevention in the Home, Musculoskeletal Pain, Hip Pain. Forms are Medication Reconciliation Form, Thank You Letter, Antibiotic Education, Prescription Opioid Use. Follow up: Private Physician; When: 2 - 3 days; Reason: Recheck today's complaints. Problem is new. Symptoms have improved. cp 14:16 14:15 09/21/2018 13:43 Discharged to Home. Impression: Fall on same level from em slipping, tripping and stumbling; Unspecified injury of face and head; Other chest pain - left lower ribs from fall; Pain in left hip. Condition is Stable. Discharge Instructions: Rib Contusion, Head Injury, Adult, Fall Prevention in the Home, Musculoskeletal Pain, Hip Pain. Forms are Medication Reconciliation Form, Thank You Letter, Antibiotic Education, Prescription Opioid Use. Follow up: Private Physician; When: 2 - 3 days; Reason: Recheck today's complaints. Problem is new. Symptoms have improved. em
[2018-09-21 14:32] VITALS: TEMP 97.9
[2018-09-21 14:34] VITALS: BP 137/71; O2SAT 99
--- NOTE | 2018-09-22 07:56 | EKG ---
Test Date: 2018-09-21 Test Time: 12:11:37 Funeral Professional: BARON MEASUREMENT RESULTS: Intervals: Rate: 75 CO: 150 QRSD: 90 QT: 408 QTc: 455 [place]: P: 52 CO: 150 QRS: 61 T: 50 INTERPRETIVE STATEMENTS: Normal sinus rhythm Normal ECG Compared to ECG 03/17/2018 15:39:29 Right bundle-branch block no longer present Electronically Signed On 09-22-18 07:53:03 CDT by Thompson Willett
== END 2018-09-21 14:16 | disposition home or self-care (01) ==
LOC: ER 11:22
DX: S09.90XA Unspecified injury of head, initial encounter (principal); R07.89 Other chest pain; M25.552 Pain in left hip; I10 Essential (primary) hypertension; E78.00 Pure hypercholesterolemia, unspecified; J45.909 Unspecified asthma, uncomplicated; W01.0XXA Fall on same level from slipping, tripping and stumbling without subsequent striking against object, initial encounter; Y93.9 Activity, unspecified; Y92.9 Unspecified place or not applicable
CPT/HCPCS: 93005; 85025; 80048; 36415; 86900; 86850; 86901; 70450; 72125; 71045; 72170; 73502; 71100; 96374; 99284; J3010

== ENCOUNTER 2023-05-21 07:33 | Day surgery (SDC) | payer OTHER ==
[2023-05-17 14:14] LABS: Absolute Lymphocytes (CBC) 1.7 K/uL (0.7-4.9); Hematocrit 33.5 % (36.0-45.0); MCV 93.4 fL (80-100); MPV 7.9 fL (7.6-11.3); Platelets 312 thou/uL (152-406); RBC Red Blood Cell Count 3.59 M/uL (3.86-4.86)
--- NOTE | 2023-05-17 20:24 | RAD REPORT ---
EXAM DESCRIPTION: RAD - Chest Pa And Lat (2 Views) - 05/17/2023 2:25 pm CLINICAL HISTORY: preop for surgery. History of hypertension and asthma. COMPARISON: 09/21/2018 TECHNIQUE: PA and lateral views of the chest were obtained. FINDINGS: The lungs show mild mid to basilar opacities. Heart size is normal and central vasculature is within normal limits. No pleural effusion or pneumothorax seen. No acute bony finding noted. IMPRESSION: Mild scattered midlung to basilar bilateral airspace opacities, may reflect an infectiou s or inflammatory process such as pneumonia.
[2023-05-21] MEDS ORDERED: Ringers Lactate 1,000 ML IV ONE (07:45)
[2023-05-21] MEDS ORDERED: LIDOCAINE 2% MPF 5 ML VIAL ONE (08:47)
[2023-05-21] MEDS ORDERED: dexAMETHasone 10 MG/ML VIAL ONE (08:47)
[2023-05-21] MEDS ORDERED: ONDANSETRON 4 MG/2 ML VIAL ONE (08:47)
[2023-05-21] MEDS ORDERED: KETOROLAC 30 MG/ML INJ ONE (08:47)
[2023-05-21] MEDS ORDERED: FENTANYL CITR 100 MCG/2 ML ONE (08:48)
[2023-05-21] MEDS ORDERED: propofoL 200 MG/20 ML VIAL IV ONE (08:48)
[2023-05-21] MEDS ORDERED: MIDAZOLAM HCL 2 MG/2 ML INJ ONE (08:48)
[2023-05-21] MEDS ORDERED: BUPIVACAINE 0.5% PF 10 ML VIAL ONE ×2 (08:51→10:33)
[2023-05-21] MEDS: CEFAZOLIN SODIUM 1 GM/VIAL ONE ×2 (10:05→10:07)
[2023-05-21] MEDS ORDERED: ATROPINE SULF 1 MG/10 ML SYR IV ONE (10:17)
[2023-05-21] MEDS ORDERED: EPHEDRINE SULF 50 MG/ML VIAL ONE (10:17)
[2023-05-21] MEDS ORDERED: GLYCOPYRROLATE 0.2 MG/ML SYR ONE (10:17)
--- NOTE | 2023-05-21 10:51 | P.BOP ---
Preoperative diagnosis: infected subQ suprapubic mass Postoperative diagnosis: same Primary procedure: Excisional biosy infected subQ suprapubic mass 8x8cm Estimated blood loss: <10cc Specimen: inflammatory mass Findings: inflammatory mass Anesthesia: General Complications: None Transferred to: Recovery Room Condition: Good
[2023-05-21] MEDS ORDERED: HYDROMORPHONE HCL 1 MG/ML INJ ONE (11:07)
[2023-05-21 13:08] VITALS: BP 133/59; TEMP 97; O2SAT 97
--- NOTE | 2023-05-21 15:13 | EKG ---
Test Date: 2023-05-17 Test Time: 15:00:59 Can Intake Worker: JAVI MEASUREMENT RESULTS: Intervals: Rate: 102 [place]: 130 QRSD: 128 QT: 348 QTc: 453 [place]: P: 40 [place]: 130 QRS: 119 T: 47 INTERPRETIVE STATEMENTS: Sinus tachycardia Right bundle branch block Left posterior fascicular block Bifascicular block Septal infarct, age undetermined Abnormal ECG Compared to ECG 09/21/2018 12:11:37 Right bundle-branch block now present Left posterior fascicular block now present Bifascicular block now present Myocardial infarct finding now present Sinus rhythm no longer present Electronically Signed On 05-21-23 15:03:21 PORTABLE TRACK CREW CHIEF by Chema Jensen
--- NOTE | 2023-05-21 23:12 | DS ---
Date of Discharge: 05/21/2023 Diagnosis: Infected subcutaneous suprapubic mass. Procedure: Excisional biopsy of infected subcutaneous suprapubic mass. Disposition: Home. Activity: As tolerated. No heavy lifting. Followup: Follow up in my office in one week. Call for appointment at [phone]. Gauze to the area daily. FAN/ESTHER Voice ID: [id number] Report ID: [id number]
--- NOTE | 2023-05-21 23:15 | OP ---
Date of Procedure: 05/21/2023 Surgeon: Paramjit Howard MD Preoperative Diagnosis: Infected suprapubic subcutaneous mass. Postoperative Diagnosis: Infected suprapubic subcutaneous mass. Procedure: Excisional biopsy of infected suprapubic inflammatory subcutaneous mass, about 8 x 8 cm. Estimated Blood Loss: Less than 10 cc. Specimens: Inflammatory mass. Finding: Inflammatory mass. Anesthesia: General plus local. Complications: None. Indications: This is a case of a female who comes to us with an inflammatory mass on the suprapubic area. The patient was taking antibiotics, improved, but the mass is still present. The benefits, al ternatives, and risks of excisional biopsy of that mass fully explained, which include, but not limit ed to infection, bleeding, damage to adjacent structures, anesthesia complication, recurrence, absces s, VA, even . She also understands this may not relieve her symptoms. She might need more than one surgical intervention. She understands that we are going to give her some antibiotics postopera tively. If we do not see any clinical improvement in the next few days, we might have to leave this area to close by secondary intention. She understood. Also, she may need packing. She signed a con sent. Description Of Procedure: The area of concern was marked by me and the patient in the holding room. The patient brought to the operating room, placed in supine position. Anesthesia was done without c omplication. The suprapubic and abdomen were prepped and draped in usual sterile fashion. A time-ou t was called. A wedge incision was made in the skin all the way down to subcutaneous tissue. We not ed this inflammatory mass present. The mass was deep, but completely removed. Hemostasis obtained. I did not see any pus in this area, although patient had it infected before. So I did not culture. The area was irrigated and then we closed the deep layers with 0 chromic, mid layers with 0 chromic, more superficial layers with 3-0 chromic and then the skin with loose yaron to allow some gauze in between to allow it to drain. Sponge count and instrument count correct. No bleeding. Hemostasis was obtained before closure. Local anesthetic was applied. The patient was sent to Recovery in stab le condition. FAN/ESTHER Voice ID: [id number] Report ID: [id number]
== END 2023-05-21 11:56 | disposition home or self-care (01) ==
LOC: OR 07:33
PROVIDERS: ATTEND Surgery
PROC: 0JBC0ZZ Excision of Pelvic Region Subcutaneous Tissue and Fascia, Open Approach (ICD-10-PCS; principal; 2023-05-21 10:15)
DX: R22.2 Localized swelling, mass and lump, trunk (principal); L08.9 Local infection of the skin and subcutaneous tissue, unspecified
CPT/HCPCS: 93005; 85025; 80048; 36415; 88305; 71046; 11406; J2704; J2001; J2250; J3010; J1100; J1170; J2405; J7120; J0690; J0461